=== PATIENT | female | born 1960 | race Caucasian/White ===

== ENCOUNTER → 2017-10-27 12:34 | Outpatient (CLI) | payer OTHER, SELFPAY ==
--- NOTE | 2017-10-27 | DI.RAD.S_ITS ---
PROCEDURE: XR ELBOW RT MIN 3V INDICATIONS: ELBOW PAIN TECHNIQUE: 3 views of the elbow were acquired. COMPARISON: None. FINDINGS: Bones: No fractures or dislocations. No suspicious bony lesions. Soft tissues: No elbow joint effusion. No suspicious soft tissue calcifications. IMPRESSION: No fracture identified. Dictated by: Ankur Johnson M.D. on 10/27/2017 at 14:36 Approved by: Ankur Johnson M.D. on 10/27/2017 at 14:39
== END ==
PROVIDERS: PCP Nurse Practitioner Family; Visit Provider Nurse Practitioner Family
DX: M25.521 Pain in right elbow (principal)
CPT/HCPCS: 73080

== ENCOUNTER → 2019-02-04 08:10 | Outpatient (CLI) | payer OTHER, SELFPAY ==
--- NOTE | 2019-02-04 08:12 | DI.MRI.S_ITS ---
PROCEDURE: MR HEAD/BRAIN WO/W CON INDICATIONS: r/o tumor causing vertigo/headache/coordination issues TECHNIQUE: Noncontrast axial T1 spin echo, axial T2 fast spin echo, sagittal and axial FLAIR, coronal T2 fast spin echo, axial gradient echo, axial diffusion and ADC through the brain. After the administration of contrast, axial and coronal 3D VIBE or T1 spin echo with fat saturation through the brain. COMPARISON: None. FINDINGS: Image quality: Excellent. CSF Spaces: Basal cisterns are patent. No extra-axial fluid collections. Ventricles are normal in size and shape. Brain: No midline shift. No intracranial bleeds or masses. There is a mild degree of patchy high flair signal foci within the bilateral periventricular and some cortical white matter, predominantly involving the frontal lobes, which is nonspecific in distribution. No abnormal intracranial enhancement. The brainstem appears normal. Diffusion-weighted images demonstrate no acute ischemic insults. No chronic ischemic insults. Normal intravascular flow voids are present. Skull and face: Calvarial marrow is normal in signal. Orbits appear normal. Sinuses: There is mild left and minimal right mastoid fluid bilaterally. There is mild mucosal thickening within the bilateral maxillary and ethmoid air cells and within the right sphenoid sinus. IMPRESSION: 1. Mild degree of nonspecific white matter disease. Differential considerations include small vessel cement disease, diabetes mellitus, vasculitides, migraines, and demyelinating disorders, such as multiple sclerosis. 2. No acute process. No recent infarct. 3. No evidence of neoplasm. 4. Mild sinus and mastoid disease. Dictated by: Kelin Lancaster M.D. on 02/04/2019 at 9:14 Approved by: Kelin Lancaster M.D. on 02/04/2019 at 9:17
== END ==
PROVIDERS: PCP Nurse Practitioner Family; Visit Provider Specialist
DX: R42 Dizziness and giddiness (principal); R51 Headache; J32.8 Other chronic sinusitis
CPT/HCPCS: 70553

== ENCOUNTER 2019-02-11 10:21 | Day surgery (SDC) | payer OTHER, SELFPAY ==
[2019-02-08 15:14] VITALS: BMI 26.1
[2019-02-11] VITALS (8 sets, daily range): BP systolic 117–143; BP diastolic 74–89; PULSE 69–112; RESP 10–20; TEMP 36.1–36.7; O2SAT 99–100; BMI 25.7
--- NOTE | 2019-02-11 | PATH_ITS ---
[facility] Accession Number: [id number] . 01 Material submitted: . PART A: artery - RIGHT TEMPORAL ARTERY BBIOPSY PART B: artery - LEFT TEMPORAL ARTERY BIOPSY . 01 Clinical history: . GALEN TEMPORAL ARTERY BX . 02 Diagnosis: A. Right Temporal Artery Biopsy: Negative for histologic features of temporal arteritis. The internal elastic lamina appears to be intact; the control tissue stained appropriately. . B. Left Temporal Artery, Biopsy: Negative for histologic features of temporal arteritis. The internal elastic lamina appears to be intact; the control tissue stained appropriately. MRV 02/12/2019 1321 Local . 02 Electronically signed: . Priscilla Knutson MD, Pathologist NPI- [id number] . 01 Gross description: . Received two formalin-filled containers, both labeled with the patient's name: . A. In a container labeled right temporal artery #1, the specimen consists of a 0.1 cm in diameter by 0.2 cm in length, cylindrical shaped portion of tissue which is inked blue and entirely submitted in cassette A to be possibly further sectioned at the time of embedding. B. In a container labeled #2. Left temporal artery biopsy, the specimen consists of a 0.1 cm in diameter by 0.4 cm in length, cylindrical shaped portion of tissue which is inked blue and entirely submitted in cassette B to be possibly further sectioned at the time of embedding. ([id number]) /GENE 02/12/2019 0230 Local . 02 Pathologist provided ICD-10: I77.6 . 02 CPT . 291477, 334201, 652722, [id number] Performed at: [address] [id number] MD Rinku Campbell MD Phone: [phone] Performed at: 02 [facility] [address] [place] [address] [place], [place] [id number] MD Virgen Barnett MD Phone: [phone]
[2019-02-11] MEDS: LACTATED RINGERS 1,000 ML 42 ML IV (10:45)
--- NOTE | 2019-02-11 11:22 | PM.HP.1 ---
History of Present Illness History of Present Illness Date Patient Seen: 02/11/19 Time Patient Seen: 11:22 Chief complaint: [id number] GALEN TEMPORAL ARTERY BX Narrative: The patient is a woman here for bilateral temporal artery biopsies. She has been having headaches chronically and there was Concern about temporal arteritis. She actually underwent an MRI because some of her symptoms were suggestive of possible tumor. This was not the case but a question was raised about a possible vasculitis as a cause of her symptoms. The she is here for biopsy. Patient History Medical History Anemia (Acute) HTN (hypertension) (Acute) Pyelonephritis (Acute ~09/2012) Sepsis (Acute ~09/2012) Skin cancer (Inactive) Surgical History H/O sinus surgery (Inactive) Hx of appendectomy (Inactive) Family & Social History Social History: household members spouse Meds Home Medications and Allergies Home Medications Medication Instructions Recorded Confirmed Type ACETAMINOPHEN 650 mg PO Q4H #0 tab 10/10/12 02/08/19 History NORETHINDRONE-ETHINYL ESTRAD 1 applic DAILY #0 10/10/12 02/11/19 History (Ortho-Novum 7-7-7-28 Tablet) hydrochlorothiazide 12.5 mg PO QDAY #0 cap 10/10/12 02/11/19 History ibuprofen 800 mg PO Q8H #0 tab 10/10/12 02/08/19 History meclizine 25 mg PO DAILY 02/11/19 02/11/19 History minocycline 100 mg PO DAILY 02/11/19 02/11/19 History ranitidine HCl 150 mg PO DAILY 02/11/19 02/11/19 History Allergies Allergy/AdvReac Type Severity Reaction Status Date / Time No Known Drug Allergies Allergy Verified 02/11/19 10:35 Review of Systems Review of Systems ROS Unobtainable: All systems reviewed & are unremarkable except as noted in HPI and below Neurologic Comments: Chronic bilateral temporal headaches and chronic intermittent dizziness and vertigo. Exam Vital Signs (past 8 hours): - 02/11/19 10:40 Temperature 98.1 F Pulse Rate 93 H Respiratory Rate 16 Blood Pressure 137/89 Pulse Oximetry 99 Oxygen Delivery Method Room Air Narrative Exam Narrative: Cooperative no apparent distress. Not palpable temporal arteries only by signal. Lungs are clear no rales or rhonchi heart regular rate and rhythm no murmur gallop abdomen is soft nontender without mass no nodes neck supraclavicular areas Assessment & Plan Assessment & Plan narrative: Patient with possible vasculitis as a cause of headaches. Here for temporal artery biopsy. I've discussed the procedure with her including risks of bleeding infection scar. She appears to understand wishes to proceed. She was marked with a hand-held Doppler preop
--- NOTE | 2019-02-11 11:34 | PM.PREOP ---
Pre-operative Note Interval Note History & Physical reviewed/Exam performed by Physician: Yes Changes to H&P: No
--- NOTE | 2019-02-11 11:58 | SUR.OPER ---
Supine on padded OR bed, head on pillow, arms padded and tucked at side, legs uncrossed, safety belt at thigh, tape over blanket over lower legs .
[2019-02-11] MEDS: LIDOCAINE 1% 30 ML INJ (12:05)
--- NOTE | 2019-02-11 12:47 | PM.OP.1 ---
Operative Date/Time/Diagnoses Date of procedure: 02/11/19 Time of procedure: 12:47 Pre-op diagnosis: Chronic temporal headaches with an abnormal MRI suggesting possible vasculitis rule out temporal arteritis Post-op diagnosis: same Procedure & Clinicians Procedure: Bilateral temporal artery biopsies Same procedure as scheduled: Yes Indications: Abnormal MRI with temporal headaches Surgeon: Bran Verde Click Yes if Unassisted: Yes Anesthesia Type: General Operative Notes Findings: Two normal appearing arteries. That on the left was diminutive Closure Type: primary Specimen(s): other (Segments left and right temporal artery) Prosthetic devices, grafts, tissues, transplants, or devices: None Estimated Blood Loss (mL): 5 Blood products transfused: none Procedure in detail: The patient is placed supine on the operating room table and underwent general LMA anesthesia. She was prepped and draped in the usual fashion. She had been marked preoperatively but hand-held Doppler that was sterile was applied to plan on definitive incision. We began on the right. After locating the path of the artery and incision was made overlying it and carried down to the level the artery which was just above the muscle fascia. A segment of the artery was from surrounding structures. It was tied proximally and distally with a 4 0 Vicryl tie. The segment between the 2 ties was removed and submitted. Pre removal length was about 1 cm. The subcu/skin was closed with interrupted 4 0 Vicryl and Mastisol and Steri-Strips. Attention was turned to the opposite side. I great difficulty finding this artery preoperatively and in fact the artery that I located is much lower than I would have anticipated and decided to abandon that plan as I was concerned that I could be getting into the area of the nerve to the eyelid. Therefore I sought out a 2nd artery which was higher in in a more 10 typical location that was very difficult to hear. Incisions made overlying it and carried down through muscle tissue to identify this short this artery it was quite diminutive. Ice handled it in an identical fashion to the opposite side and closure was in an identical fashion. The pain tolerated the procedure well was awakened extubated taken recovery area in good condition. Complications: none Post-operative Condition: stable Disposition: PACU Plan for aftercare: Follow-up in the office
[2019-02-11] MEDS: ONDANSETRON 4 MG/2 ML INJ IV (12:55)
[2019-02-11] MEDS: METOCLOPRAMIDE 10 MG/2 ML INJ IV (13:04)
--- NOTE | 2019-02-11 13:56 | SUR.PHASEII ---
1345 Stable and pleasant, denies pain, nausea resolved, pt anxious to go home. Smiling, denies questions/concerns
== END 2019-02-11 13:53 | disposition home or self-care (01) ==
PROVIDERS: PCP Nurse Practitioner Family; Visit Provider Specialist
PROC: (CPT 37609; principal; 2019-02-11 11:30)
DX: R51 Headache (principal); R93.0 Abnormal findings on diagnostic imaging of skull and head, not elsewhere classified; I10 Essential (primary) hypertension
CPT/HCPCS: 37609; J1100; J2405; J2704; J2765; J3010

== ENCOUNTER → 2020-01-03 07:25 | Outpatient (CLI) | payer OTHER, SELFPAY ==
[2020-01-03 08:31] LABS: Hematocrit 40.3 % (36-46); Hemoglobin 13.3 g/dL (12.0-16.0); Mean Corpuscular HGB Conc 33.1 % (30-36); Mean Corpuscular Hemoglobin 30.4 PG (26-34); Mean Corpuscular Volume 91.9 fL (80-100); Platelet Count 180 X10^3/uL (150-400); Red Blood Cell Count 4.38 X10^6/uL (4.0-5.2); Red Cell Distribution Width 13.5 % (11.6-14.8); White Blood Cell Count 6.5 X10^3/uL (4.5-11.0)
[2020-01-03 08:46] LABS: Alanine Aminotransferase 16 IU/L (<35); Albumin 3.6 g/dL (3.5-5.0); Albumin Globulin Ratio 1.2 (1.0-2.8); Alkaline Phosphatase 63 U/L (38-126); Aspartate Aminotransferase 21 IU/L (14-36); BUN Creatinine Ratio 25.6 (6-22); Bilirubin Total 0.3 mg/dL (0.2-1.3); Blood Urea Nitrogen 20 mg/dL (7-17); Calcium 8.6 mg/dL (8.4-10.2); Carbon Dioxide 28 mmol/L (22-32); Chloride 104 mmol/L (98-107); Cholesterol 147 mg/dL (140-199); Estimated Glomerular Filt Rate > 60.0 mL/min (>60); Glucose 102 mg/dL (70-100); HDL Cholesterol 51 mg/dL (40-60); HEMOLYSIS < 15 (0-50); LDL Cholesterol Calculated 81 mg/dL (<100); Potassium 3.9 mmol/L (3.4-5.1); Sodium 135 mmol/L (137-145); Total Protein 6.6 g/dL (6.3-8.2); Triglycerides 77 mg/dL (35-150)
[2020-01-03 09:43] LABS: TSH w/ Reflex to FT4 5.85 uIU/mL (0.47-4.68)
[2020-01-03 10:11] LABS: Free T4, Direct Thyroxine 0.87 ng/dL (0.78-2.19)
== END ==
PROVIDERS: PCP Registered Nurse Diabetes Educator; Referring Provider Registered Nurse Diabetes Educator; Visit Provider Registered Nurse Diabetes Educator
DX: Z00.00 Encounter for general adult medical examination without abnormal findings (principal); I10 Essential (primary) hypertension
CPT/HCPCS: 36415; 80053; 80061; 84439; 84443; 85027

== ENCOUNTER → 2020-02-01 17:22 | Outpatient (CLI) | payer OTHER, SELFPAY ==
--- NOTE | 2020-02-01 17:23 | DI.MG.S_ITS ---
BILATERAL DIGITAL SCREENING MAMMOGRAM 3D/2D WITH CAD: 02/01/2020 CLINICAL: Routine screening. Comparison is made to exams dated: 11/30/2009 mammogram, 03/25/2011 mammogram, and 03/07/2014 mammogram - outside location. There are scattered fibroglandular elements in both breasts. Current study was also evaluated with a Computer Aided Detection (CAD) system. No significant masses, calcifications, or other findings are seen in either breast. There has been no significant interval change. IMPRESSION: NEGATIVE There is no mammographic evidence of malignancy. A 1 year screening mammogram is recommended. This exam was interpreted at Station ID: [id number]. NOTE: For mammograms, a report in lay terms will be sent to the patient. Approximately 15% of breast malignancies will not be visualized mammographically. In the management of a palpable breast mass, a negative mammogram must not discourage biopsy of a clinically suspicious lesion. Electronically Signed By: Ita yoder/greg:02/02/2020 09:14:10 letter sent: Normal Exam ACR BI-RADS Category 1: Negative 3341F
== END ==
PROVIDERS: PCP Registered Nurse Diabetes Educator; Referring Provider Registered Nurse Diabetes Educator; Visit Provider Registered Nurse Diabetes Educator
DX: Z12.31 Encounter for screening mammogram for malignant neoplasm of breast (principal)
CPT/HCPCS: 77063; 77067

== ENCOUNTER → 2020-03-23 10:35 | Outpatient (CLI) | payer OTHER, SELFPAY ==
[2020-03-23 11:49] LABS: BUN Creatinine Ratio 24.4 (6-22); Blood Urea Nitrogen 19 mg/dL (7-17); Calcium 9.2 mg/dL (8.4-10.2); Carbon Dioxide 29 mmol/L (22-32); Chloride 101 mmol/L (98-107); Estimated Glomerular Filt Rate > 60.0 mL/min (>60); Glucose 95 mg/dL (70-100); HEMOLYSIS < 15 (0-50); Sodium 136 mmol/L (137-145)
[2020-03-23 12:21] LABS: TSH w/ Reflex to FT4 1.48 uIU/mL (0.47-4.68)
== END ==
PROVIDERS: PCP Registered Nurse Diabetes Educator; Referring Provider Registered Nurse Diabetes Educator; Visit Provider Registered Nurse Diabetes Educator
DX: E03.9 Hypothyroidism, unspecified (principal); E87.1 Hypo-osmolality and hyponatremia; I10 Essential (primary) hypertension
CPT/HCPCS: 36415; 80048; 84443

== ENCOUNTER → 2020-06-01 15:26 | Outpatient (CLI) | payer OTHER, SELFPAY ==
[2020-06-01] MEDS: COVID-19 VACC #1, MRNA(MOD) 100 MCG/0.5 ML VIAL IM (15:34)
== END ==
PROVIDERS: PCP Registered Nurse Diabetes Educator; Visit Provider Internal Medicine
DX: Z23 Encounter for immunization (principal)
CPT/HCPCS: 0011A; 91301

== ENCOUNTER → 2020-06-29 14:46 | Outpatient (CLI) | payer OTHER, SELFPAY ==
[2020-06-29] MEDS: COVID-19 VACC #2, MRNA(MOD) 100 MCG/0.5 ML VIAL IM (14:51)
== END ==
PROVIDERS: Visit Provider Internal Medicine
DX: Z23 Encounter for immunization (principal)
CPT/HCPCS: 0012A; 91301

== ENCOUNTER → 2020-12-11 08:09 | Outpatient (CLI) | payer OTHER, SELFPAY ==
[2020-12-11 09:02] LABS: Hematocrit 37.6 % (36-46); Hemoglobin 12.5 g/dL (12.0-16.0); Mean Corpuscular HGB Conc 33.2 % (30-36); Mean Corpuscular Hemoglobin 30.1 PG (26-34); Mean Corpuscular Volume 90.6 fL (80-100); Platelet Count 187 X10^3/uL (150-400); Red Blood Cell Count 4.15 X10^6/uL (4.0-5.2); Red Cell Distribution Width 13.2 % (11.6-14.8); White Blood Cell Count 9.7 X10^3/uL (4.5-11.0)
[2020-12-11 09:16] LABS: Alanine Aminotransferase 16 IU/L (<35); Albumin Globulin Ratio 1.4 (1.0-2.8); Alkaline Phosphatase 115 U/L (38-126); Aspartate Aminotransferase 24 IU/L (14-36); BUN Creatinine Ratio 18.6 (6-22); Bilirubin Total 0.4 mg/dL (0.2-1.3); Blood Urea Nitrogen 13 mg/dL (7-17); Calcium 9.3 mg/dL (8.4-10.2); Carbon Dioxide 30 mmol/L (22-32); Chloride 102 mmol/L (98-107); Cholesterol 161 mg/dL (140-199); Estimated Glomerular Filt Rate > 60.0 mL/min (>60); Globulin 2.9 g/dL (1.7-4.1); Glucose 99 mg/dL (80-110); HDL Cholesterol 54 mg/dL (40-60); HEMOLYSIS < 15 (0-50); LDL Cholesterol Calculated 91 mg/dL (<100); Sodium 138 mmol/L (137-145); Total Protein 6.9 g/dL (6.3-8.2); Triglycerides 79 mg/dL (35-150)
[2020-12-11 09:47] LABS: TSH w/ Reflex to FT4 2.78 uIU/mL (0.47-4.68)
== END ==
PROVIDERS: PCP Registered Nurse Diabetes Educator; Referring Provider Registered Nurse Diabetes Educator; Visit Provider Registered Nurse Diabetes Educator
DX: E03.9 Hypothyroidism, unspecified (principal); E87.1 Hypo-osmolality and hyponatremia; I10 Essential (primary) hypertension
CPT/HCPCS: 36415; 80053; 80061; 84443; 85027

== ENCOUNTER → 2020-12-14 16:09 | Outpatient (CLI) | payer OTHER, SELFPAY ==
[2020-12-14 17:53] LABS: COVID19 -Nasal RAPID Negative (Negative)
== END ==
PROVIDERS: PCP Registered Nurse Diabetes Educator; Visit Provider Registered Nurse Diabetes Educator
DX: Z20.822 Contact with and (suspected) exposure to COVID-19 (principal)
CPT/HCPCS: 87635

== ENCOUNTER → 2020-12-25 13:39 | Outpatient (CLI) | payer OTHER, SELFPAY ==
[2020-12-25 15:33] LABS: Influenza A - CEPHEID Flu A NEGATIVE (NEGATIVE); Influenza B - CEPHEID Flu B NEGATIVE (NEGATIVE)
== END ==
PROVIDERS: PCP Registered Nurse Diabetes Educator; Referring Provider Registered Nurse Diabetes Educator; Visit Provider Registered Nurse Diabetes Educator
DX: J02.9 Acute pharyngitis, unspecified (principal); R05.9 Cough, unspecified; R68.83 Chills (without fever); R51.9 Headache, unspecified; R09.89 Other specified symptoms and signs involving the circulatory and respiratory systems
CPT/HCPCS: 87070; 87081; 87502

== ENCOUNTER → 2021-12-11 07:07 | Outpatient (CLI) | payer OTHER, SELFPAY ==
[2021-12-11 08:38] LABS: Hematocrit 38.3 % (36-46); Hemoglobin 12.8 g/dL (12.0-16.0); Mean Corpuscular HGB Conc 33.4 % (30-36); Mean Corpuscular Hemoglobin 30.5 PG (26-34); Mean Corpuscular Volume 91.1 fL (80-100); Platelet Count 163 X10^3/uL (150-400); Red Cell Distribution Width 13.7 % (11.6-14.8); White Blood Cell Count 5.4 X10^3/uL (4.5-11.0)
[2021-12-11 09:21] LABS: Alanine Aminotransferase 22 IU/L (<35); Albumin 3.9 g/dL (3.5-5.0); Albumin Globulin Ratio 1.4 (1.0-2.8); Alkaline Phosphatase 95 U/L (38-126); Aspartate Aminotransferase 28 IU/L (14-36); BUN Creatinine Ratio 20.5 (6-22); Bilirubin Total 0.4 mg/dL (0.2-1.3); Blood Urea Nitrogen 15 mg/dL (7-17); Carbon Dioxide 26 mmol/L (22-32); Chloride 103 mmol/L (98-107); Cholesterol 181 mg/dL (140-199); Estimated Glomerular Filt Rate > 60 mL/min (>60); Globulin 2.8 g/dL (1.7-4.1); Glucose 96 mg/dL (80-110); HDL Cholesterol 59 mg/dL (40-60); HEMOLYSIS < 15 (0-50); LDL Cholesterol Calculated 107 mg/dL (<100); Potassium 4.3 mmol/L (3.4-5.1); Sodium 137 mmol/L (137-145); Total Protein 6.7 g/dL (6.3-8.2); Triglycerides 77 mg/dL (35-150)
[2021-12-11 09:42] LABS: TSH w/ Reflex to FT4 1.76 uIU/mL (0.47-4.68)
== END ==
PROVIDERS: PCP Registered Nurse Diabetes Educator; Referring Provider Registered Nurse Diabetes Educator; Visit Provider Registered Nurse Diabetes Educator
DX: E03.9 Hypothyroidism, unspecified (principal); I10 Essential (primary) hypertension
CPT/HCPCS: 36415; 80053; 80061; 84443; 85027

== ENCOUNTER → 2022-03-13 08:37 | Outpatient (CLI) | payer OTHER, SELFPAY ==
--- NOTE | 2022-03-13 08:38 | DI.MG.S_ITS ---
BILATERAL DIGITAL DIAGNOSTIC MAMMOGRAM 3D/2D: 03/13/2022 CLINICAL: Left breast lump. Comparison is made to exams dated: 02/01/2020 mammogram - [facility], 03/07/2014 mammogram, and 03/25/2011 mammogram - outside location. Both breasts are heterogeneously dense, which may obscure small masses (category c / 51-75% glandular tissue). No significant masses, calcifications, or other findings are seen in either breast. IMPRESSION: INCOMPLETE: NEEDS ADDITIONAL IMAGING EVALUATION No mammographic evidence of malignancy. A targeted left breast ultrasound is recommended and will immediately follow. Based on the Tyrer Cuzick model (a risk assessment model) the patient's lifetime risk is 11.8% and her 10 year risk is 5.0%. According to the ACR, ACS, and NCCN guidelines, an annual breast MRI exam along with mammogram is recommended if the patient's lifetime risk is 20% or greater. This exam was interpreted at Station ID: [id number]. NOTE: For mammograms, a report in lay terms will be sent to the patient. Approximately 15% of breast malignancies will not be visualized mammographically. In the management of a palpable breast mass, a negative mammogram must not discourage biopsy of a clinically suspicious lesion. Electronically Signed By: Dre Case M.D. slc/:03/13/2022 09:17:46 ACR BI-RADS Category 0: Incomplete [id number]
--- NOTE | 2022-03-13 08:38 | DI.US.S_ITS ---
LIMITED ULTRASOUND OF LEFT BREAST: 03/13/2022 CLINICAL: Palpable left breast lump. Comparison is made to exams dated: 03/13/2022 mammogram, 02/01/2020 mammogram - [facility], and 03/07/2014 mammogram - outside location. Color flow and real-time ultrasound of the left breast 6-7 o'clock region were performed. Isbell scale images of the real-time examination were reviewed. No significant abnormalities were seen sonographically in the left breast in the region of the palpable abnormality. IMPRESSION: NEGATIVE There is no sonographic evidence of malignancy. Exam findings were conveyed to the patient. Patient is advised to monitor for significant change. Clinical follow-up as needed. A 1 year screening mammogram is recommended. This exam was interpreted at Station ID: [id number]. Electronically Signed By: Dre Case M.D. slc/:03/13/2022 09:43:11 letter sent: Normal Exam Ultrasound BI-RADS: 1 Negative
== END ==
PROVIDERS: PCP Registered Nurse Diabetes Educator; Referring Provider Registered Nurse Diabetes Educator; Visit Provider Registered Nurse Diabetes Educator
DX: N63.20 Unspecified lump in the left breast, unspecified quadrant (principal); R92.2 Inconclusive mammogram
CPT/HCPCS: 76642; 77066; G0279

== ENCOUNTER 2022-03-21 08:33 | Day surgery (SDC) | payer OTHER, SELFPAY ==
[2022-03-21 08:57] VITALS: BP 130/82; PULSE 82; RESP 26; TEMP 36.1; O2SAT 98; BMI 25.7
[2022-03-21] MEDS: LACTATED RINGERS 1,000 ML 150 ML IV (09:02)
--- NOTE | 2022-03-21 09:59 | PM.HP.1 ---
History of Present Illness History of Present Illness Date Patient Seen: 03/21/22 Time Patient Seen: 10:00 Chief complaint: Screening Colonoscopy Narrative: Janice is a 61-year-old woman here for colonoscopy. She has had 2 in the past and she thinks her last 1 was over 10 years ago. She is not sure if she had any polyps. She has no known family history of colon cancer. Patient History Medical History Anemia Carpal tunnel syndrome Chronic GERD Eczema Headache HTN (hypertension) Melanoma Pyelonephritis (~09/2012) Rosacea Sepsis (~09/2012) Skin cancer Subclinical hypothyroidism Vertigo Surgical History H/O sinus surgery Hx of appendectomy Family & Social History Family History Father Skin cancer Hypertension Mother Skin cancer Hypertension Stroke Social History: household members spouse Tobacco & Substance use: Smoking Status Former smoker alcohol intake frequency a few times a week Substance Use Type does not use Meds Home Medications and Allergies Home Medications Medication Instructions Recorded Confirmed Type hydrochlorothiazide 12.5 mg capsule 12.5 mg PO QDAY #90 caps 10/10/12 03/21/22 Rx ibuprofen 800 mg tablet 800 mg PO Q8H PRN pain #90 tabs 10/10/12 03/21/22 Rx famotidine 20 mg tablet (Pepcid) 20 mg PO BID PRN heartburn #180 12/19/21 03/21/22 Rx tabs levothyroxine 50 mcg tablet 50 mcg PO DAILY #90 tabs 12/19/21 03/21/22 Rx meclizine 25 mg tablet 25 mg PO TID PRN dizziness #270 03/04/22 03/21/22 Rx tabs Allergies Allergy/AdvReac Type Severity Reaction Status Date / Time No Known Drug Allergies Allergy Verified 03/21/22 08:51 Exam Vital Signs (past 8 hours): - 03/21/22 08:57 Temperature 97 F L Pulse Rate 82 Respiratory Rate 26 H Blood Pressure 130/82 Pulse Oximetry 98 Oxygen Delivery Method Room Air Oxygen Delivery Method Room Air Const General: No acute distress Assessment & Plan Assessment and plan (1) Colon cancer screening: Status: Acute Plan Janice is a 61-year-old woman here for colonoscopy for colon cancer screening. Reviewed the risks and benefits and she would like to proceed. Time Spent With Patient Critical Care time: I spent a total of [] minutes of critical care time on this patient's care today; this time is exclusive of procedural time.
[2022-03-21 10:31] VITALS: BP 98/59; PULSE 57; RESP 16; TEMP 36.1; O2SAT 98
[2022-03-21 10:40] VITALS: BP 98/61; PULSE 52; RESP 12; O2SAT 98
--- NOTE | 2022-03-21 10:42 | PM.OP.COLON ---
Operative Date/Time/Diagnoses Date of procedure: 03/21/22 Time of procedure: 10:42 Pre-op diagnosis: Colon cancer screening Post-op diagnosis: same Procedure & Clinicians Study performed: Colonoscopy Same procedure as scheduled: Yes Surgeon: Titus Reed Procedure Notes Procedure in detail: Surgeon: Titus Reed MD Anesthesia: Dr. Vera Procedure: The patient was brought to the endoscopy suite, placed in left lateral decubitus position. The patient was connected to monitoring devices. A time-out was performed. Sedation was administered. Once the patient was adequately sedated, a digital rectal exam was performed and was normal. The scope was then inserted and advanced to the cecum where the appendiceal orifice was identified and photographed. The scope was then slowly withdrawn over greater than 6 minutes. The mucosa was thoroughly inspected. No polyps were found. She had a normal colon. The scope was retroflexed in the rectum. No abnormalities were seen. The scope was straightened and removed. The patient was awakened and brought to recovery. Scope withdrawal time: 8 minutes Sedation time: 17 minutes EBL: 0 Findings: Normal colon Post-procedure Recommendations: Colonoscopy in 10 years Disposition: PACU
[2022-03-21 10:45] VITALS: BP 123/75; PULSE 87; RESP 26; TEMP 36.4; O2SAT 99
[2022-03-21 10:47] VITALS: BP 123/75; PULSE 90; RESP 16; O2SAT 97
--- NOTE | 2022-03-21 11:54 | SUR.PHASEII ---
1055 VS: BP 105/71, HR 72, temp 96.7, O2 99% RA.
== END 2022-03-21 11:13 | disposition home or self-care (01) ==
PROVIDERS: PCP Registered Nurse Diabetes Educator; Referring Provider Surgery; Visit Provider Surgery
PROC: 0DJD8ZZ Inspection of Lower Intestinal Tract, Via Natural or Artificial Opening Endoscopic (ICD-10-PCS; CPT 45378; principal; 2022-03-21 09:45)
DX: Z12.11 Encounter for screening for malignant neoplasm of colon (principal)
CPT/HCPCS: 45378; J2704

== ENCOUNTER → 2023-02-22 08:17 | Outpatient (CLI) | payer OTHER, SELFPAY ==
[2023-02-22 09:25] LABS: Hemoglobin 13.3 g/dL (12.0-16.0); Mean Corpuscular HGB Conc 33.3 % (30-36); Mean Corpuscular Hemoglobin 30.5 PG (26-34); Mean Corpuscular Volume 91.5 fL (80-100); Platelet Count 199 X10^3/uL (150-400); Red Blood Cell Count 4.37 X10^6/uL (4.0-5.2); Red Cell Distribution Width 13.6 % (11.6-14.8); White Blood Cell Count 5.8 X10^3/uL (4.5-11.0)
[2023-02-22 09:37] LABS: Alanine Aminotransferase 21 IU/L (<35); Albumin 4.3 g/dL (3.5-5.0); Albumin Globulin Ratio 1.3 (1.0-2.8); Alkaline Phosphatase 81 U/L (38-126); Aspartate Aminotransferase 31 IU/L (14-36); Bilirubin Total 0.8 mg/dL (0.2-1.3); Blood Urea Nitrogen 12 mg/dL (7-17); Calcium 9.8 mg/dL (8.4-10.2); Carbon Dioxide 27 mmol/L (22-32); Chloride 100 mmol/L (98-107); Cholesterol 179 mg/dL (140-199); Estimated Glomerular Filt Rate > 60 mL/min (>60); Globulin 3.4 g/dL (1.7-4.1); Glucose 98 mg/dL (80-110); HDL Cholesterol 66 mg/dL (40-60); HEMOLYSIS < 15 (0-50); LDL Cholesterol Calculated 100 mg/dL (<100); Potassium 4.2 mmol/L (3.4-5.1); Sodium 135 mmol/L (137-145); Total Protein 7.7 g/dL (6.3-8.2); Triglycerides 67 mg/dL (35-150)
== END ==
LOC: LAB 08:18
PROVIDERS: PCP Registered Nurse Diabetes Educator; Referring Provider Registered Nurse Diabetes Educator; Visit Provider Registered Nurse Diabetes Educator
DX: E87.1 Hypo-osmolality and hyponatremia (principal); E03.9 Hypothyroidism, unspecified; I10 Essential (primary) hypertension
CPT/HCPCS: 36415; 80053; 80061; 84443; 85027

== ENCOUNTER → 2023-04-02 12:29 | Outpatient (CLI) | payer OTHER, SELFPAY ==
--- NOTE | 2023-04-02 12:31 | DI.MRI.S_ITS ---
PROCEDURE: MR HEAD/BRAIN WO/W CON INDICATIONS: eval for demyelinating lesions/other TECHNIQUE: Noncontrast sagittal and axial FLAIR, axial and coronal T2 fast spin echo, axial VIBE, axial gradient echo, axial diffusion and ADC through the brain. After the administration of contrast, axial and coronal and sagittal VIBE with fat saturation through the brain. COMPARISON: [facility], MR, MR CERVICAL SPINE WO/W CON, 04/02/2023, 13:00. [facility], MR, MR THORACIC SPINE WO/W CON, 04/02/2023, 13:00. [facility], MR, MR HEAD/BRAIN WO/W CON, 02/04/2019, 8:32. FINDINGS: Image quality: Excellent. CSF spaces: Ventricles are normal in size and shape. Basal cisterns are patent. No extra-axial fluid collections. Brain: Mild scattered foci of T2 weighted hyperintensity can be seen within the periventricular deep white matter. No definite involvement of the corpus callosum can be seen. No brainstem involvement is seen. These lesions do not enhance. Mild age-appropriate brain parenchymal volume loss can be seen. No intracranial bleeds or mass effects. Isbell-white matter interface appears intact. No abnormal intracranial enhancement. Diffusion weighted images show no acute ischemic insults. Brainstem appears normal. Normal intravascular flow voids are present. Skull and face: Calvarial marrow signal is normal. Orbits appear normal. Sinuses: Sinuses and mastoids are clear. IMPRESSION: Scattered foci of T2 weighted hyperintensity can be seen within the white matter, without enhancement. Given the appearance of the lesions and the age of the patient, these are most consistent with chronic small vessel ischemic change. A demyelinating process (including multiple sclerosis) is possible, yet considered to be less likely. No masses or abnormal enhancement can be seen. Dictated by: Kyle Becerril M.D. on 04/02/2023 at 14:49 Approved by: Kyle Becerril M.D. on 04/02/2023 at 14:51
--- NOTE | 2023-04-02 12:31 | DI.MRI.S_ITS ---
PROCEDURE: MR THORACIC SPINE WO/W CON INDICATIONS: eval for demyelinating lesions/other TECHNIQUE: Noncontrast sagittal T1 spin echo and T2 fast spin echo, sagittal STIR, axial T1 and T2 fast spin echo through the thoracic spine. After the administration of contrast, axial and sagittal T1 spin echo with fat saturation through the thoracic spine. COMPARISON: [facility], MR, MR CERVICAL SPINE WO/W CON, 04/02/2023, 13:00. [facility], MR, MR HEAD/BRAIN WO/W CON, 04/02/2023, 13:00. Correlation is also made with lumbar MRI, 03/09/2004. FINDINGS: Image quality: This examination is limited by involuntary motion artifact. Alignment and curvature: Accentuated thoracic kyphosis is seen. Marrow: Marrow is of normal overall signal. No acute vertebral body compression fractures. Spinal cord: In this patient with this given history, scrutiny is given to none can be seen. The thoracic cord demonstrates normal signal and bulk. No abnormal enhancement can be seen. Paraspinous soft tissues: No paravertebral masses or abnormal enhancement. Miscellaneous: Throughout the thoracic spine, no significant neural foraminal narrowing or central canal narrowing can be seen. At the L1-L2 level, there is moderate loss of disc height. Moderate disc bulge is seen, with a central/left disc extrusion seen, as on series 7, image 9. Moderate central canal narrowing is seen at this level. Mild bilateral neural foraminal narrowing is seen. IMPRESSION: No suspicious T2 hyperintense lesions can be seen within the thoracic cord to suggest involvement with multiple sclerosis. No abnormal enhancement is seen. Focal L1-L2 degenerative change seen, with a disc extrusion. This is new compared to 2004. Dictated by: Kyle Becerril M.D. on 04/02/2023 at 14:52 Approved by: Kyle Becerril M.D. on 04/02/2023 at 14:54
--- NOTE | 2023-04-02 12:32 | DI.MG.S_ITS ---
BILATERAL DIGITAL SCREENING MAMMOGRAM 3D/2D WITH CAD: 04/02/2023 CLINICAL: Routine screening. Family history of breast cancer. Comparison is made to exams dated: 03/13/2022 ultrasound, 03/13/2022 mammogram, 02/01/2020 mammogram - [facility], 03/07/2014 mammogram, and 03/25/2011 mammogram - outside location. Both breasts are heterogeneously dense, which may obscure small masses (category c / 51-75% glandular tissue). Current study was also evaluated with a Computer Aided Detection (CAD) system. No significant masses, calcifications, or other findings are seen in either breast. There has been no significant interval change. IMPRESSION: NEGATIVE There is no mammographic evidence of malignancy. A 1 year screening mammogram is recommended. Based on the Tyrer Cuzick model (a risk assessment model) the patient's lifetime risk is 11.5% and her 10 year risk is 5.0%. According to the ACR, ACS, and NCCN guidelines, an annual breast MRI exam along with mammogram is recommended if the patient's lifetime risk is 20% or greater. This exam was interpreted at Station ID: [id number]. NOTE: For mammograms, a report in lay terms will be sent to the patient. Approximately 15% of breast malignancies will not be visualized mammographically. In the management of a palpable breast mass, a negative mammogram must not discourage biopsy of a clinically suspicious lesion. Electronically Signed By: Dali duke/greg:04/02/2023 14:21:40 letter sent: Normal Exam ACR BI-RADS Category 1: Negative 3341F
--- NOTE | 2023-04-02 14:32 | DI.MRI.S_ITS ---
PROCEDURE: MR CERVICAL SPINE WO/W CON INDICATIONS: eval for demyelinating lesions/other TECHNIQUE: Noncontrast sagittal T1 spin echo and T2 fast spin echo, sagittal STIR, sagittal PD fast spin echo, foraminal oblique sagittal T2 fast spin echo, axial gradient echo or T2 fast spin echo through the cervical spine. After the administration of contrast, sagittal and axial T1 spin echo with fat saturation through the cervical spine. COMPARISON: [facility], MR, MR THORACIC SPINE WO/W CON, 04/02/2023, 13:00. [facility], MR, MR HEAD/BRAIN WO/W CON, 04/02/2023, 13:00. [facility], RG, MRI C-SPINE W/O CONTRAST, 03/09/2004, 7:25. FINDINGS: Image quality: Excellent. Alignment and curvature: There is minimal retrolisthesis seen at the C4-C5 level. Marrow: Marrow demonstrates normal overall signal. Spinal cord: Visualized spinal cord is normal in size, without white matter lesions. No suspicious intramedullary enhancement. No cerebellar tonsillar herniation. Paraspinous soft tissues: No paravertebral masses or suspicious enhancement. C2-C3: The disc height is well-preserved. Loss of disc signal is seen at this level. A mild degree of generalized disc osteophyte complex is seen. There is mild right-sided and at least moderate left-sided facet hypertrophy. There is at least moderate left-sided and no right-sided neural foraminal narrowing. No central canal narrowing is seen. C3-C4: The disc height is well-preserved. Loss of disc signal is seen at this level. Mild to moderate disc osteophyte complex is seen, which is eccentric to the right. There is mild right-sided and vhyr-[id number] left-sided facet hypertrophy. Moderate bilateral neural foraminal narrowing is seen. No significant central canal narrowing is seen. C4-C5: At least moderate loss of disc height and disc signal can be seen. Moderate disc osteophyte complex is seen, with a central disc osteophyte protrusion. Mild to moderate facet hypertrophy is seen. There is moderate right-sided and moderate to severe left-sided neural foraminal narrowing. At least moderate central canal narrowing is seen, with associated mass effect upon the ventral spinal cord, as on series 6, image 23. C5-C6: Moderate loss of disc height is seen. Loss of disc signal is seen. Moderate generalized disc osteophyte complex is seen. Uncovertebral joint hypertrophy is seen at this level. Mild to moderate facet hypertrophy can be seen. There is moderate to severe left-sided and at least moderate right-sided neural foraminal narrowing. Moderate central canal narrowing is seen. There is associated mass effect upon the ventral spinal cord. C6-C7: Xnej-uc-[id number] loss of disc height and disc signal can be seen. Mild to moderate disc osteophyte complex is seen, which is eccentric to the left. Mild facet joint hypertrophy is seen. There is moderate to severe left-sided and moderate right-sided neural foraminal narrowing. Moderate central canal narrowing is seen. C7-T1: No significant abnormality is seen. IMPRESSION: No abnormal T2 hyperintense lesions can be seen within the cervical cord to suggest involvement with multiple sclerosis. No abnormal enhancement is seen. Multiple levels of significant degenerative change can be seen, which are worse than in 2005. Dictated by: Kyle Becerril M.D. on 04/02/2023 at 14:56 Approved by: Kyle Becerril M.D. on 04/02/2023 at 15:01
== END ==
LOC: MRI 12:29
PROVIDERS: PCP Registered Nurse Diabetes Educator; Referring Provider Registered Nurse Diabetes Educator; Visit Provider Registered Nurse Diabetes Educator
DX: Z12.31 Encounter for screening mammogram for malignant neoplasm of breast (principal); Z80.3 Family history of malignant neoplasm of breast; R92.333 Mammographic heterogeneous density, bilateral breasts; G93.9 Disorder of brain, unspecified; M47.816 Spondylosis without myelopathy or radiculopathy, lumbar region; M51.26 Other intervertebral disc displacement, lumbar region; M47.812 Spondylosis without myelopathy or radiculopathy, cervical region; R20.0 Anesthesia of skin; R29.898 Other symptoms and signs involving the musculoskeletal system
CPT/HCPCS: 70553; 72156; 72157; 77063; 77067; A9579

== ENCOUNTER → 2023-05-01 09:16 | Outpatient (CLI) | payer OTHER, SELFPAY ==
--- NOTE | 2023-05-01 09:18 | DI.RAD.S_ITS ---
PROCEDURE: XR LUMBAR SPINE MIN 4V INDICATIONS: eval LBP with BLE numbness/weakness TECHNIQUE: 5 views of the lumbar spine were acquired, including bilateral oblique views. COMPARISON: None. FINDINGS: Bones: 5 nonrib-bearing vertebrae are present. There is normal bony alignment. Multilevel loss of disc space height. Small vertebral body osteophytes. Facet joint hypertrophy. No vertebral body compression fractures. No suspicious bony lesions. Soft tissues: Overlying bowel gas pattern is normal. No suspicious soft tissue calcifications. Oblique images: No pars defects. IMPRESSION: No compression fracture. Moderate DDD and degenerative change. Dictated by: Dre Case M.D. on 05/01/2023 at 11:15 Approved by: Dre Case M.D. on 05/01/2023 at 11:16
== END ==
LOC: RAD 09:17
PROVIDERS: PCP Registered Nurse Diabetes Educator; Referring Provider Anesthesiology; Visit Provider Anesthesiology
DX: M47.816 Spondylosis without myelopathy or radiculopathy, lumbar region (principal); M51.36 Other intervertebral disc degeneration, lumbar region; M54.50 Low back pain, unspecified
CPT/HCPCS: 72110

== ENCOUNTER 2023-10-21 08:15 | Outpatient (RCR) | payer OTHER, SELFPAY ==
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
--- NOTE | 2023-11-05 15:27 | PT-OP ANOTE ---
PT attempted to call pt due to pt cancelling last appt via text; however, phone system is currently down so unable to reach pt. Pt does not have any further appt scheduled out and her auth is on 11/04. PT and pt discussed discharge at last session, planning to d/c at 11/04 appt. Will attempt to reach back out to pt due to expected discharge from skilled PT
--- NOTE | 2023-11-06 16:45 | PT-OP ANOTE ---
PT called and left message for pt asking pt to call PT at her convenience. PT needs to speak with pt about discharge and no authorization since pt canceled last visit.
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
== END 2023-12-02 10:17 | disposition home or self-care (01) ==
LOC: PHYS 08:15
PROVIDERS: Family Provider Registered Nurse Diabetes Educator; PCP Registered Nurse Diabetes Educator; Referring Provider Anesthesiology; Visit Provider Anesthesiology
DX: M54.16 Radiculopathy, lumbar region (principal); M54.9 Dorsalgia, unspecified; M47.816 Spondylosis without myelopathy or radiculopathy, lumbar region; R53.1 Weakness; R27.8 Other lack of coordination
CPT/HCPCS: 97110; 97140; 97162; 97530

== ENCOUNTER → 2024-04-24 07:59 | Outpatient (CLI) | payer OTHER, SELFPAY ==
[2024-04-24 09:33] LABS: Hematocrit 39.1 % (36-46); Hemoglobin 13.2 g/dL (12.0-16.0); Mean Corpuscular HGB Conc 33.9 % (30-36); Mean Corpuscular Hemoglobin 30.5 PG (26-34); Mean Corpuscular Volume 89.9 fL (80-100); Platelet Count 191 X10^3/uL (150-400); Red Blood Cell Count 4.35 X10^6/uL (4.0-5.2); Red Cell Distribution Width 13.8 % (11.6-14.8); White Blood Cell Count 6.8 X10^3/uL (4.5-11.0)
[2024-04-24 09:48] LABS: Alanine Aminotransferase 21 IU/L (<35); Albumin 4.2 g/dL (3.5-5.0); Albumin Globulin Ratio 1.6 (1.0-2.8); Alkaline Phosphatase 93 U/L (38-126); Aspartate Aminotransferase 28 IU/L (14-36); BUN Creatinine Ratio 16.9 (6-22); Bilirubin Total 0.4 mg/dL (0.2-1.3); Blood Urea Nitrogen 12 mg/dL (7-17); Calcium 9.4 mg/dL (8.4-10.2); Carbon Dioxide 25 mmol/L (22-32); Chloride 99 mmol/L (98-107); Cholesterol 189 mg/dL (140-199); Estimated Glomerular Filt Rate > 60 mL/min (>60); Globulin 2.6 g/dL (1.7-4.1); Glucose 99 mg/dL (80-110); HDL Cholesterol 60 mg/dL (40-60); HEMOLYSIS 15 (0-50); LDL Cholesterol Calculated 116 mg/dL (<100); Potassium 3.7 mmol/L (3.4-5.1); Sodium 133 mmol/L (137-145); Total Protein 6.8 g/dL (6.3-8.2); Triglycerides 67 mg/dL (35-150)
[2024-04-24 10:19] LABS: TSH w/ Reflex to FT4 1.61 uIU/mL (0.47-4.68)
== END ==
PROVIDERS: Family Provider Registered Nurse Diabetes Educator; PCP Registered Nurse Diabetes Educator; Referring Provider Registered Nurse Diabetes Educator; Visit Provider Registered Nurse Diabetes Educator
DX: E03.9 Hypothyroidism, unspecified (principal); I10 Essential (primary) hypertension; E87.1 Hypo-osmolality and hyponatremia
CPT/HCPCS: 36415; 80053; 80061; 84443; 85027

== ENCOUNTER → 2024-04-28 08:17 | Outpatient (CLI) | payer OTHER, SELFPAY ==
--- NOTE | 2024-04-28 08:19 | DI.RAD.S_ITS ---
PROCEDURE: XR HIP W PEL IF DONE GALEN MIN 4V INDICATIONS: eval bilateral hip pain TECHNIQUE: AP pelvis with lateral view(s) of the bilateral hip(s). COMPARISON: None. FINDINGS: Bones: No fractures or dislocations. Pelvic ring appears intact. No suspicious bony lesions. Mild bilateral hip osteoarthritis with osseous hypertrophy. Soft tissues: The visualized bowel gas pattern is normal. No suspicious soft tissue calcifications. IMPRESSION: No acute bony abnormality. Dictated by: Muriel Sierra MD, PhD on 04/28/2024 at 12:20 Approved by: Muriel Sierra MD, PhD on 04/28/2024 at 12:21
--- NOTE | 2024-04-28 08:19 | DI.MG.S_ITS ---
MM screening mammo BI: 04/28/2024. BI-RADS: 1 CLINICAL: 63-year old female for bilateral screening mammogram. Tyrer-Cuzick lifetime risk of 11.4%. No personal or first-degree family history of breast cancer. PRIOR EXAMS 04/02/2023, 03/13/2022, 02/01/2020. MAMMOGRAPHY TECHNIQUE: 2D and 3D (tomosynthesis) digital mammographic views obtained, with additional images as needed for full coverage. Current study was also evaluated with a Computer Aided Detection (CAD) system. DENSITY D. The breasts are extremely dense, which lowers the sensitivity of mammography. MAMMOGRAPHY FINDINGS Bilateral: No suspicious mass, asymmetry, microcalcification, or other abnormality seen. No significant change from comparison. IMPRESSION: * No evidence of malignancy. RECOMMENDATIONS Bilateral * Annual screening mammography. OVERALL ASSESSMENT CATEGORY BI-RADS-1: Negative. The [employer] recommends annual screening mammography beginning at age 40 for women with average risk of breast cancer. ELECTRONICALLY SIGNED: Alisson Yuan M.D. on 04/28/2024 at 04:12:07 PM PT Interpreting Station ID: [id number]
== END ==
LOC: MAMMO 08:18
PROVIDERS: Family Provider Registered Nurse Diabetes Educator; PCP Registered Nurse Diabetes Educator; Referring Provider Registered Nurse Diabetes Educator; Visit Provider Registered Nurse Diabetes Educator
DX: Z12.31 Encounter for screening mammogram for malignant neoplasm of breast (principal); R92.333 Mammographic heterogeneous density, bilateral breasts; M16.0 Bilateral primary osteoarthritis of hip; M25.551 Pain in right hip; M25.552 Pain in left hip
CPT/HCPCS: 73522; 77063; 77067

== ENCOUNTER 2025-01-28 15:01 | Emergency (ER) | payer OTHER, SELFPAY ==
--- OUTSIDE RECORDS SUMMARY | 2025-01-28 15:04 | XMS_ITS ---
Author Name Emilee Guallpa Address Unknown Organization [facility] Care Team Providers Care Water Resource Agent Name Role Phone Unavailable Primary Care Physician Unavailab le History Of Present Illness This is a 64 year old female who is an established patient who has a family history of melanoma, previous history of actinic keratoses, and previous history of dysplastic nevi, and is being seen for a full body skin examination. She is being monitored for unspecified. Medications Medication Generic Name RxNorm Strength Strength Unit Route Dose Dose Form Frequency Date Started Date Ended Status Indication Sig Acne Cleansing Pads salicyli c acid 2 % Topica l pads, medic ated 06/21/19 16 suspend ed Appl y bid- --juan ught in offi ce adapalene adapalen e 747568 0.1 % Topica l cream 10/06/19 19 suspend ed Appl y to face QHS azelaic acid azelaic acid 7018091 15 % Topica l gel Bid 07/01/19 25 active Appl y to face ebonie cea BID Bactroban 779814 2 % Topica l ointm ent suspend ed Appl y BID x2wk s clindamycin phosphate clindamy rio phosphat e 285672 1 % Topica l 1% lotio n bid 06/26/19 24 active Appl y to affe cted area s abov e the ears and on the ches t BID unti l area is reso lved . Finacea azelaic acid 0249177 15 % Topica l gel QD 09/25/19 19 suspend ed Appl y to ebonie cea amou nt once walker y. Finacea azelaic acid 0893970 15 % Topica l gel suspend ed Appl y to face QHS fluorouraci l fluorour acil 615487 5 % Topica l cream 01/04/20 21 active Appl y to affe cted area s on face and scal p bid x two week s. [place] sulfacet amide sodium (acne) 2097317 10 % Topica l suspe nsion 03/11/19 19 suspend ed Appl y to face BID MetroCream metronid azole 862983 0.75 % Topica l cream 07/29/19 15 suspend ed Appl y to affe cted area Qhs metronidazo le metronid azole 339718 0.75 % Topica l cream BID 11/22/19 23 active Appl y thin laye r to whol e face BID. Latisse bimatopr ost 0.03 % [facility] [employer] [facility] hes drops with appli cator 01/27/20 14 suspend ed Appl y as dire cted . Pt purc hase d in offi ce. doxycycline hyclate doxycycl ine hyclate 7755558 100 mg Oral capsu le 02/19/19 19 suspend ed Take one PO twic e walker y doxycycline hyclate doxycycl ine hyclate 4028309 100 mg Oral 100 mg capsu le BID 07/01/19 25 active take 1 cap once BID X 2 week s with food and wate r. hydrochloro thiazide hydrochl orothiaz aaron Oral suspend ed ibuprofen ibuprofe n 100 mg Oral table t,gosia wable suspend ed minocycline minocycl ine 394755 100 mg Oral capsu le BID 09/25/19 19 suspend ed One PO BID. Take with full glas s of wate r. No dair y Ortho-Novum (28) norethin drone-et hin estradio l Oral suspend ed hydrochloro thiazide hydrochl orothiaz aaron suspend ed Ortho-Novum (28) norethin -e.estra diol triphasi c suspend ed Zantac ranitidi ne HCl suspend ed Problems Problem Code Type Status Date of Diagnosis Date of Resolution Actinic keratosis (disorder) (S NOMED) Diagnosis active 12/31/2024 Skin changes due to chronic exposure to non-ionizing radiation (disorder) 606300213(S NOMED) Diagnosis active 12/31/2024 Inflamed seborrheic keratosis (disorder) 358450699(S NOMED) Diagnosis active 12/31/2024 Rosacea (disorder) 489203788(S NOMED) Diagnosis active 12/31/2024 Contusion of left great toe (disorder) 84504718802 407316(SNOM ED) Diagnosis active 12/31/2024 Contusion of right great toe (disorder) 60782904710 646909(SNOM ED) Diagnosis active 12/31/2024 Seborrheic keratosis (disorder) 670196371(S NOMED) Diagnosis active 12/31/2024 Hemangioma of skin and subcutaneous tissue (disorder) 526125477(S NOMED) Diagnosis active 12/31/2024 Melanocytic nevus of trunk (disorder) 822561021(S NOMED) Diagnosis active 12/31/2024 Disorder of pigmentation (disorder) 616299489(S NOMED) Diagnosis active 12/31/2024 History of skin and/or subcutaneous tissue disease (situation) 52266070460 9105(SNOMED ) Diagnosis active 12/31/2024 Family history of malignant neoplasm (situation) 788966468(S NOMED) Diagnosis active 12/31/2024 Contusion of left great toe (disorder) 10816235301 668372(SNOM ED) Diagnosis active 11/11/2024 Contusion of right great toe (disorder) 97596596760 831613(SNOM ED) Diagnosis active 11/11/2024 History of skin and/or subcutaneous tissue disease (situation) 24474641271 9105(SNOMED ) Diagnosis active 11/11/2024 Family history of malignant neoplasm (situation) 001170423(S NOMED) Diagnosis active 11/11/2024 Skin changes due to chronic exposure to non-ionizing radiation (disorder) 211970769(S NOMED) Diagnosis active 11/11/2024 Neoplasm of uncertain behavior of skin (disorder) 71323492(SN OMED) Diagnosis active 06/30/2024 Rosacea (disorder) 423110011(S NOMED) Diagnosis active 06/30/2024 Actinic keratosis (disorder) 016280283(S NOMED) Diagnosis active 06/30/2024 Skin changes due to chronic exposure to non-ionizing radiation (disorder) 241675531(S NOMED) Diagnosis active 06/30/2024 Seborrheic keratosis (disorder) 703927227(S NOMED) Diagnosis active 06/30/2024 Hemangioma of skin and subcutaneous tissue (disorder) 075849728(S NOMED) Diagnosis active 06/30/2024 Melanocytic nevus of trunk (disorder) 633729152(S NOMED) Diagnosis active 06/30/2024 Disorder of pigmentation (disorder) 125555430(S NOMED) Diagnosis active 06/30/2024 History of skin and/or subcutaneous tissue disease (situation) 88441009088 9105(SNOMED ) Diagnosis active 06/30/2024 Family history of malignant neoplasm (situation) 231548866(S NOMED) Diagnosis active 06/30/2024 Rosacea (disorder) 698159347(S NOMED) Diagnosis active 12/31/2023 Actinic keratosis (disorder) (S NOMED) Diagnosis active 12/31/2023 Skin changes due to chronic exposure to non-ionizing radiation (disorder) 130965361(S NOMED) Diagnosis active 12/31/2023 Seborrheic keratosis (disorder) 113481875(S NOMED) Diagnosis active 12/31/2023 Hemangioma of skin and subcutaneous tissue (disorder) 054083594(S NOMED) Diagnosis active 12/31/2023 Melanocytic nevus of trunk (disorder) 339558454(S NOMED) Diagnosis active 12/31/2023 Disorder of pigmentation (disorder) 503307136(S NOMED) Diagnosis active 12/31/2023 History of skin and/or subcutaneous tissue disease (situation) 51181417277 9105(SNOMED ) Diagnosis active 12/31/2023 Family history of malignant neoplasm (situation) 922321903(S NOMED) Diagnosis active 12/31/2023 Furuncle of chest wall (disorder) 67424950(SN OMED) Diagnosis active 06/26/2023 Furuncle (disorder) 284890111(S NOMED) Diagnosis active 06/26/2023 Actinic keratosis (disorder) (S NOMED) Diagnosis active 06/26/2023 Skin changes due to chronic exposure to non-ionizing radiation (disorder) 401744128(S NOMED) Diagnosis active 06/26/2023 Seborrheic keratosis (disorder) 506026785(S NOMED) Diagnosis active 06/26/2023 Hemangioma of skin and subcutaneous tissue (disorder) 104506506(S NOMED) Diagnosis active 06/26/2023 Melanocytic nevus of trunk (disorder) 565548509(S NOMED) Diagnosis active 06/26/2023 Disorder of pigmentation (disorder) 371566552(S NOMED) Diagnosis active 06/26/2023 History of skin and/or subcutaneous tissue disease (situation) 43689555302 9105(SNOMED ) Diagnosis active 06/26/2023 Family history of malignant neoplasm (situation) 560820132(S NOMED) Diagnosis active 06/26/2023 Rosacea (disorder) 874313372(S NOMED) Diagnosis active 06/26/2023 Neoplasm of uncertain behavior of skin (disorder) 92098870(SN OMED) Diagnosis active 11/21/2022 Actinic keratosis (disorder) 380693356(S NOMED) Diagnosis active 11/21/2022 Rosacea (disorder) 095545372(S NOMED) Diagnosis active 11/21/2022 Skin changes due to chronic exposure to non-ionizing radiation (disorder) 841357132(S NOMED) Diagnosis active 11/21/2022 Seborrheic keratosis (disorder) 232876169(S NOMED) Diagnosis active 11/21/2022 Hemangioma of skin and subcutaneous tissue (disorder) 984721223(S NOMED) Diagnosis active 11/21/2022 Melanocytic nevus of trunk (disorder) 912026781(S NOMED) Diagnosis active 11/21/2022 Disorder of pigmentation (disorder) 954830856(S NOMED) Diagnosis active 11/21/2022 History of skin and/or subcutaneous tissue disease (situation) 81338345679 9105(SNOMED ) Diagnosis active 05/29/2022 Family history of malignant neoplasm (situation) 278645155(S NOMED) Diagnosis active 05/29/2022 Skin changes due to chronic exposure to non-ionizing radiation (disorder) (S NOMED) Diagnosis active 05/29/2022 Seborrheic keratosis (disorder) 248236582(S NOMED) Diagnosis active 05/29/2022 Hemangioma of skin and subcutaneous tissue (disorder) 940835205(S NOMED) Diagnosis active 05/29/2022 Melanocytic nevus of trunk (disorder) 187435745(S NOMED) Diagnosis active 05/29/2022 Disorder of pigmentation (disorder) 239015049(S NOMED) Diagnosis active 05/29/2022 Actinic keratosis (disorder) (S NOMED) Diagnosis active 05/29/2022 Inflamed seborrheic keratosis (disorder) 816004123(S NOMED) Diagnosis active 05/29/2022 Asteatosis cutis (disorder) 31609531(SN OMED) Diagnosis active 05/29/2022 Actinic keratosis (disorder) (S NOMED) Diagnosis active 11/28/2021 Skin changes due to chronic exposure to non-ionizing radiation (disorder) (S NOMED) Diagnosis active 11/28/2021 Seborrheic keratosis (disorder) 482485687(S NOMED) Diagnosis active 11/28/2021 Hemangioma of skin and subcutaneous tissue (disorder) 692110583(S NOMED) Diagnosis active 11/28/2021 Melanocytic nevus of trunk (disorder) 372961678(S NOMED) Diagnosis active 11/28/2021 Disorder of pigmentation (disorder) 841740617(S NOMED) Diagnosis active 11/28/2021 History of skin and/or subcutaneous tissue disease (situation) 63464162473 9105(SNOMED ) Diagnosis active 11/28/2021 Family history of malignant neoplasm (situation) 413438068(S NOMED) Diagnosis active 11/28/2021 Actinic keratosis (disorder) (S NOMED) Diagnosis active 06/28/2021 Skin changes due to chronic exposure to non-ionizing radiation (disorder) (S NOMED) Diagnosis active 06/28/2021 Inflamed seborrheic keratosis (disorder) 592402664(S NOMED) Diagnosis active 06/28/2021 Acne (disorder) 33861466(SN OMED) Diagnosis active 06/28/2021 Seborrheic keratosis (disorder) 667209618(S NOMED) Diagnosis active 06/28/2021 Hemangioma of skin and subcutaneous tissue (disorder) 639596986(S NOMED) Diagnosis active 06/28/2021 Melanocytic nevus of trunk (disorder) 748266525(S NOMED) Diagnosis active 06/28/2021 Disorder of pigmentation (disorder) 554158229(S NOMED) Diagnosis active 06/28/2021 History of skin and/or subcutaneous tissue disease (situation) 25560654828 9105(SNOMED ) Diagnosis active 06/28/2021 Family history of malignant neoplasm (situation) 166702524(S NOMED) Diagnosis active 06/28/2021 Family history of malignant neoplasm (situation) 097664935(S NOMED) Diagnosis active 01/03/2021 History of skin and/or subcutaneous tissue disease (situation) 77955052745 9105(SNOMED ) Diagnosis active 01/03/2021 Skin changes due to chronic exposure to non-ionizing radiation (disorder) 197124512(S NOMED) Diagnosis active 01/03/2021 Seborrheic keratosis (disorder) 296271473(S NOMED) Diagnosis active 01/03/2021 Hemangioma of skin and subcutaneous tissue (disorder) 526954220(S NOMED) Diagnosis active 01/03/2021 Melanocytic nevus of trunk (disorder) 524429513(S NOMED) Diagnosis active 01/03/2021 Disorder of pigmentation (disorder) 665463481(S NOMED) Diagnosis active 01/03/2021 Actinic keratosis (disorder) 214062858(S NOMED) Diagnosis active 01/03/2021 Inflamed seborrheic keratosis (disorder) 909332798(S NOMED) Diagnosis active 01/03/2021 Patient encounter status (finding) 950974417(S NOMED) Diagnosis active 01/03/2021 Family history of malignant neoplasm of other organs or systems Z80.8(ICD-1 0) Diagnosis active 04/08/2019 Personal history of diseases of the skin and subcutaneous tissue Z87.2(ICD-1 0) Diagnosis active 04/08/2019 Other rosacea L71.8(ICD-1 0) Diagnosis active 04/08/2019 Hemangioma of skin and subcutaneous tissue D18.01(ICD- 10) Diagnosis active 04/08/2019 Xerosis cutis L85.3(ICD-1 0) Diagnosis active 04/08/2019 Hypertrophic scar L91.0(ICD-1 0) Diagnosis active 04/08/2019 Other melanin hyperpigmentation L81.4(ICD-1 0) Diagnosis active 04/08/2019 Other rosacea L71.8(ICD-1 0) Diagnosis active 11/04/2018 Family history of malignant neoplasm of other organs or systems Z80.8(ICD-1 0) Diagnosis active 11/04/2018 Family history of malignant neoplasm of other organs or systems Z80.8(ICD-1 0) Diagnosis active 09/24/2018 Personal history of diseases of the skin and subcutaneous tissue Z87.2(ICD-1 0) Diagnosis active 09/24/2018 Other rosacea L71.8(ICD-1 0) Diagnosis active 09/24/2018 Hemangioma of skin and subcutaneous tissue D18.01(ICD- 10) Diagnosis active 09/24/2018 Neoplasm of uncertain behavior of skin D48.5(ICD-1 0) Diagnosis active 09/24/2018 Actinic keratosis L57.0(ICD-1 0) Diagnosis active 03/11/2018 Other rosacea L71.8(ICD-1 0) Diagnosis active 03/11/2018 Other skin changes due to chronic exposure to nonionizing radiation L57.8(ICD-1 0) Diagnosis active 02/19/2018 Hemangioma of skin and subcutaneous tissue D18.01(ICD- 10) Diagnosis active 02/19/2018 Family history of malignant neoplasm of other organs or systems Z80.8(ICD-1 0) Diagnosis active 02/19/2018 Melanocytic nevi of trunk D22.5(ICD-1 0) Diagnosis active 02/19/2018 Personal history of diseases of the skin and subcutaneous tissue Z87.2(ICD-1 0) Diagnosis active 02/19/2018 Actinic keratosis L57.0(ICD-1 0) Diagnosis active 02/19/2018 Other rosacea L71.8(ICD-1 0) Diagnosis active 02/19/2018 Inflamed seborrheic keratosis L82.0(ICD-1 0) Diagnosis active 02/19/2018 Other seborrheic keratosis L82.1(ICD-1 0) Diagnosis active 02/19/2018 Epidermal cyst L72.0(ICD-1 0) Diagnosis active 08/07/2017 Other skin changes due to chronic exposure to nonionizing radiation L57.8(ICD-1 0) Diagnosis active 08/07/2017 Hemangioma of skin and subcutaneous tissue D18.01(ICD- 10) Diagnosis active 08/07/2017 Actinic keratosis L57.0(ICD-1 0) Diagnosis active 08/07/2017 Melanocytic nevi of trunk D22.5(ICD-1 0) Diagnosis active 08/07/2017 Other seborrheic keratosis L82.1(ICD-1 0) Diagnosis active 08/07/2017 Other rosacea L71.8(ICD-1 0) Diagnosis active 08/07/2017 Other melanin hyperpigmentation L81.4(ICD-1 0) Diagnosis active 08/07/2017 Hemangioma of skin and subcutaneous tissue D18.01(ICD- 10) Diagnosis active 01/16/2017 Actinic keratosis L57.0(ICD-1 0) Diagnosis active 01/16/2017 Family history of malignant neoplasm of other organs or systems Z80.8(ICD-1 0) Diagnosis active 01/16/2017 Other skin changes due to chronic exposure to nonionizing radiation L57.8(ICD-1 0) Diagnosis active 01/16/2017 Personal history of diseases of the skin and subcutaneous tissue Z87.2(ICD-1 0) Diagnosis active 01/16/2017 Melanocytic nevi of trunk D22.5(ICD-1 0) Diagnosis active 01/16/2017 Other rosacea L71.8(ICD-1 0) Diagnosis active 01/16/2017 Other seborrheic keratosis L82.1(ICD-1 0) Diagnosis active 01/16/2017 Inflamed seborrheic keratosis L82.0(ICD-1 0) Diagnosis active 01/16/2017 Personal history of diseases of the skin and subcutaneous tissue Z87.2(ICD-1 0) Diagnosis active 06/24/2016 Other rosacea L71.8(ICD-1 0) Diagnosis active 06/24/2016 Dermatitis, unspecified L30.9(ICD-1 0) Diagnosis active 06/24/2016 Family history of malignant neoplasm of other organs or systems Z80.8(ICD-1 0) Diagnosis active 06/24/2016 Hemangioma of skin and subcutaneous tissue D18.01(ICD- 10) Diagnosis active 06/21/2015 Melanocytic nevi of left upper limb, including shoulder D22.62(ICD- 10) Diagnosis active 06/21/2015 Other rosacea L71.8(ICD-1 0) Diagnosis active 06/21/2015 Melanocytic nevi of trunk D22.5(ICD-1 0) Diagnosis active 06/21/2015 Melanocytic nevi of right upper limb, including shoulder D22.61(ICD- 10) Diagnosis active 06/21/2015 Neoplasm of uncertain behavior of skin D48.5(ICD-1 0) Diagnosis active 06/21/2015 Melanocytic nevi of right lower limb, including hip D22.71(ICD- 10) Diagnosis active 06/21/2015 Other skin changes due to chronic exposure to nonionizing radiation L57.8(ICD-1 0) Diagnosis active 06/21/2015 Family history of malignant neoplasm of other organs or systems Z80.8(ICD-1 0) Diagnosis active 06/21/2015 Melanocytic nevi, unspecified D22.9(ICD-1 0) Diagnosis active 06/21/2015 Other seborrheic keratosis L82.1(ICD-1 0) Diagnosis active 06/21/2015 Melanocytic nevi of left lower limb, including hip D22.72(ICD- 10) Diagnosis active 06/21/2015 Personal history of diseases of the skin and subcutaneous tissue Z87.2(ICD-1 0) Diagnosis active 06/21/2015 Perioral dermatitis L71.0(ICD-1 0) Diagnosis active 07/28/2014 Other skin changes due to chronic exposure to nonionizing radiation L57.8(ICD-1 0) Diagnosis active 07/28/2014 Other specified nonscarring hair loss L65.8(ICD-1 0) Diagnosis active 07/28/2014 Other rosacea L71.8(ICD-1 0) Diagnosis active 07/28/2014 Other seborrheic keratosis L82.1(ICD-1 0) Diagnosis active 01/26/2014 Family history of malignant neoplasm of other organs or systems Z80.8(ICD-1 0) Diagnosis active 01/26/2014 Scar conditions and fibrosis of skin L90.5(ICD-1 0) Diagnosis active 01/26/2014 Other skin changes due to chronic exposure to nonionizing radiation L57.8(ICD-1 0) Diagnosis active 01/26/2014 Melanocytic nevi of left lower limb, including hip D22.72(ICD- 10) Diagnosis active 01/26/2014 Other specified nonscarring hair loss L65.8(ICD-1 0) Diagnosis active 01/26/2014 Melanocytic nevi of right lower limb, including hip D22.71(ICD- 10) Diagnosis active 01/26/2014 Personal history of diseases of the skin and subcutaneous tissue Z87.2(ICD-1 0) Diagnosis active 01/26/2014 Encounter for removal of sutures Z48.02(ICD- 10) Diagnosis active 10/17/2013 Neoplasm of uncertain behavior of skin D48.5(ICD-1 0) Diagnosis active 10/05/2013 Encounter for removal of sutures Z48.02(ICD- 10) Diagnosis active 08/29/2013 Neoplasm of uncertain behavior of skin D48.5(ICD-1 0) Diagnosis active 08/15/2013 Personal history of diseases of skin and subcutaneous tissue V13.3(ICD-9 ) Diagnosis active 08/01/2013 Neoplasm of unspecified nature of bone, soft tissue, and skin 239.2(ICD-9 ) Diagnosis active 08/01/2013 Family history of other specified malignant neoplasm V16.8(ICD-9 ) Diagnosis active 08/01/2013 Other dyschromia 709.09(ICD- 9) Diagnosis active 08/01/2013 Rosacea 695.3(ICD-9 ) Diagnosis active 08/01/2013 Other seborrheic keratosis 702.19(ICD- 9) Diagnosis active 08/01/2013 Other chronic dermatitis due to solar radiation 692.74(ICD- 9) Diagnosis active 08/01/2013 Dysplastic nevus of skin (disorder) 260772368(S NOMED) Problem active Squamous cell carcinoma (disorder) 935657553(S NOMED) Problem active Eczema (disorder) 59109317(SN OMED) Problem active Eczema (disorder) 25366703(SN OMED) Problem active Dysplastic nevus of skin (disorder) 846426376(S NOMED) Problem active Dysplastic nevus of skin (disorder) 063167326(S NOMED) Problem active Dysplastic nevus of skin (disorder) 300880235(S NOMED) Problem active Squamous cell carcinoma (disorder) 297179602(S NOMED) Problem active Dysplastic nevus of skin (disorder) 269408188(S NOMED) Problem active Eczema (disorder) 76807686(SN OMED) Problem active Actinic keratosis (disorder) (S NOMED) Problem active Sunburn of second degree (disorder) 432029197(S NOMED) Problem active History of skin disorder (situation) 275941048(S NOMED) Problem active Results No data Encounters Service provided at [address], [address], [place], [place] [id number]. Office phone number is [phone]. Office fax number is [phone]. Encounter Diagnosis Location Date / Time Type Actinic Keratosis (L57.0)Act inic Damage (L57.8)Irritated Seborrheic Keratoses (L82.0)Rosacea (L71.9)Subungual hematoma toenail (S90.112A,S90.111A)Seborrheic Keratosis (L82.1)Woodward Angiomas (D18.01)Benign Appearing Nevi (D22.5)Lentigines (L81.4)MIPS ()History of Actinic Keratoses (Z87.2)Family history of malignant melanoma (Z80.8)History of Severely Dysplastic Nevus (Z87.2) [facility] 12/31/2024 16:30:00 [place] [address] Reason For Referral No data Procedures Procedure Date Destruction of premalignant skin lesion (procedure) 12/31/2024 12:00 am UTC Cryotherapy of skin lesion with liquid n itrogen (procedure) 12/31/2024 12:00 am UTC Destruction of premalignant skin lesion (procedure) 06/30/2024 12:00 am UTC Shave biopsy (procedure) 06/30/2024 12:0 0 am UTC Destruction of premalignant skin lesion (procedure) 12/31/2023 12:00 am UTC Destruction of premalignant skin lesion (procedure) 06/26/2023 12:00 am UTC Shave biopsy (procedure) 11/21/2022 12:0 0 am UTC Cryotherapy of skin lesion with liquid n itrogen (procedure) 11/21/2022 12:00 am UTC Cryotherapy of skin lesion with liquid n itrogen (procedure) 05/29/2022 12:00 am UTC Cryotherapy of skin lesion with liquid n itrogen (procedure) 11/28/2021 12:00 am UTC Cryotherapy of skin lesion with liquid n itrogen (procedure) 06/28/2021 12:00 am UTC Cryotherapy of skin lesion with liquid n itrogen (procedure) 01/03/2021 12:00 am UTC History of appendectomy (situation) 07/12 12:00 am UTC Biopsy of skin (procedure) 08/07/2017 12 :00 am UTC History of appendectomy (situation) 08/2016 12:00 am UTC Biopsy of skin (procedure) 01/16/2017 12 :00 am UTC Biopsy of skin (procedure) 06/24/2016 12 :00 am UTC History of appendectomy (situation) 06/10 12:00 am UTC History of appendectomy (situation) 06/10 12:00 am UTC Biopsy of skin (procedure) 06/21/2015 12 :00 am UTC Biopsy of skin (procedure) 08/03/2014 12 :00 am UTC History of appendectomy (situation) 07/12 12:00 am UTC Biopsy of skin (procedure) 01/26/2014 12 :00 am UTC History of appendectomy (situation) 01/10 12:00 am UTC Surgical biopsy of skin (procedure) History of appendectomy (situation) History of appendectomy (situation) Surgical biopsy of skin (procedure) Biopsy of skin (procedure) History of appendectomy (situation) History of appendectomy (situation) Biopsy of skin (procedure) History of appendectomy (situation) Surgical biopsy of skin (procedure) History of appendectomy (situation) Surgical biopsy of skin (procedure) History of appendectomy (situation) Surgical biopsy of skin (procedure) History of appendectomy (situation) Surgical biopsy of skin (procedure) History of appendectomy (situation) Surgical biopsy of skin (procedure) History of appendectomy (situation) Surgical biopsy of skin (procedure) Surgical biopsy of skin (procedure) History of appendectomy (situation) History of appendectomy (situation) Surgical biopsy of skin (procedure) History of appendectomy (situation) Surgical biopsy of skin (procedure) History of appendectomy (situation) Surgical biopsy of skin (procedure) Surgical biopsy of skin (procedure) History of appendectomy (situation) Surgical biopsy of skin (procedure) History of appendectomy (situation) Review Of Systems Provider reviewed on Dec 31, 2024.A focused review of systems was performed including Hematologic /Lymphatic and Integumentary.No Problems With Healing Or Scar Formation (hypertrophic/keloid) And NoProblems With Bleeding Or Current Blood Thinner Use. Assessment 1.Actinic Keratosis, Status: Inadequately ControlledCounselingLiquid Nitrogen: right cheek; right jain; nose; Number of freeze-thaw Cycles - 2 freeze-thaw cycles.2.Actinic DamageCounselingSunscreenRecommendations3.Irritated Seborrheic Keratoses, Status: WorseningCounselingLiquid Nitrogen: left superior upper back; left medial upper back; inferior thoracic spine; left superior medial midback; superior lumbar spine; Number of freeze-thaw Cycles - 2 freeze-thaw cycles; Medical Necessity Justification (varies by insurance carrier and by region) - irritated, inflamed, and intensely itchy.4.Rosacea, Status: StableCounselingPrescription Medication Management: nose; Continue Regimen - azelaic acid 15 % topical gelclindamycin 1 % lotiondoxycycline hyclate 100 mg ;.Prescription: azelaic acid 15 % topical gel Frequency: Bid; clindamycin 1 % lotion Frequency: Bid; doxycycline hyclate 100 mg capsule PO Frequency: BID5.Subungual hematoma toenailCounselingPhoto-Documentation: toenail; toe.Observation: right dorsal great toe.Other: Other (Free Text) - s/p manicure .6.Seborrheic KeratosisCounseling7.Woodward AngiomasCounseling8.Benign Appearing NeviCounseling9.DnoztzxbuhBatmzuavrt85.MIPSMIPS Gcquyxd25.History of Actinic CiutixjtpOzytccntef27.Family history of malignant melanomaCounselingOther: Other (Free Text) - Father/ Mother.13.History of Severely Dysplastic NevusCounseling Plan of Care Future visit for 06/17/2025 - Follow up in 6 months for: Skin Check Code Detail Instructions [id number] Never smoked tobacco [id number] Cage questionnaire [id number] Never smoked tobacco [id number] Cage questionnaire [id number] Cage questionnaire [id number] Never smoked tobacco [id number] azelaic acid 15 % topical gel Ap ply to face rosacea BID 19740218 clindamycin 1 % lotion Apply to areas of break out BID PRN [id number] doxycycline hyclate 100 mg capsu le take 1 cap onceBID X 2 weeks with food and water. 1032620 doxycycline hyclate 100 mg capsu le take 1 cap onceBID X 2 weeks with food and water. 19740218 clindamycin 1 % lotion Apply to areas of break out BID PRN 2146135 azelaic acid 15 % topical gel Ap ply to face rosacea BID 19740218 clindamycin 1 % lotion Apply to affected areas above the ears and on the chest BID until area is resolved. 948784 metronidazole 0.75 % topical cre am Apply thin layer to whole face BID. 992668 fluorouracil 5 % topical cream A pply bid x 2 weeks to precancerous lesions on the face BID X 2 weeks then stop. Not to exceed 1 g daily. 476068 fluorouracil 5 % topical cream A pply to precancerous lesions between visits BiD x 2 weeks as tolerated. 765941 fluorouracil 5 % topical cream A pply to affected areas on face and scalp bid x two weeks. 876361 adapalene 0.1 % topical cream Ap ply to face QHS 8779737 Finacea 15 % topical gel Apply t o rosacea amount once daily. 19780913 minocycline 100 mg capsule One P O BID. Take with full glass of water. No dairy [id number] Finacea 15 % topical gel Apply t o rosacea once daily. 3372478 Klaron 10 % lotion (suspension) Apply to face BID doxycycline hyclate 100 mg capsu le Take one PO twice daily 0745301 Finacea 15 % topical gel Apply t o rosacea once daily. 5851089 Finacea 15 % topical gel Apply t o rosacea BID 21150717 MetroCream 0.75 % topical Apply to face bid 3839377 Finacea 15 % topical gel Apply t o rosacea once daily. 21150717 MetroCream 0.75 % topical Apply bid to face 5567566 Finacea 15 % topical gel Apply t o face QHS 808255 MetroCream 0.75 % topical Apply bid to face 21150717 MetroCream 0.75 % topical Apply bid to face 4078719 Finacea 15 % topical gel Apply t o face QHS 9625250 Finacea 15 % topical gel Apply t o face QHS -1 Acne Cleansing Pads 2 % Apply bi d---bought in office 4857467 Finacea 15 % topical gel Apply t o face qhs 2037902 Latisse 0.03 % eyelash drops Shaq ly as directed. Pt purchased in office. 418672 MetroCream 0.75 % topical Apply to affected area Qhs [id number] Latisse 0.03 % eyelash drops Shaq ly as directed. Pt purchased in office. 396345 Bactroban 2 % topical ointment A pply BID x2wks 1418395 Finacea 15 % topical gel Apply t o face QHS Instructions * I counseled the patient regarding the following:Skin Care: Sun protective clothing and broad spectrum sunscreen can prevent the formation of Actinic Keratoses. AKs can resolve with cryotherapy, photodynamic therapy, imiquimod, topical 5-FU.Expectations: Actinic Keratoses are precancerous proliferations that occur within sun damaged skin. If untreated, a small subset of AKs can develop into Squamous Cell Carcinoma.Contact Office if: If AKs fail to resolve despite treatment, or if you develop a side effect from therapy, such as unbearable crusting, scabbing, redness and tenderness.I recommendedthe following: Nicotinamide (Vitamin B3) SupplementationBroad Spectrum Sunscreen SPF 30+ * I counseled the patient regarding the following:Skin Care: Actinic Damage can improve with broad spectrum sunscreen, sun avoidance, bleaching creams, retinoids, chemical peels and laser.Expectations:Actinic Damage is photo-aging from excessive sun exposure. It manifests as unwanted pigmentation, wrinkles and textural thinning of the skin.I recommended the following: Sunscreen * I counseled the patient regarding the following:Skin Care: Irritated Seborrheic Keratoses can be removed with cryotherapy.Expectations: Irritated Seborrheic Keratoses are benign growths that become inflamed, itchy, tender, traumatized, caught on clothing, or exhibit bleeding or crusting. Because the are symptomatic, they can be treated with cryotherapy.Contact Office if: If Irritated Seborrheic Keratoses fail to resolve despite treatment, or if you develop a side effect from therapy, such as unbearable crusting, scabbing, redness and tenderness. * I counseled the patient regarding the following:Skin care: Patient instructed to wear broad spectrum sunscreen. Moisturizers with green tints can hide redness.Expectations: Rosacea is chronic. Flushing and pimples can be triggered by: alcohol, stress, exercise, hot temperatures or spicy foods, wind and sun exposure. Telangiectasias can be improved with laser.Contact office if: Rosacea worsens or fails to improve despite months of treatment; patient develops nodules or cysts.I recommended the following: Moisturizers * I counseled the patient regarding the following:Skin care: Subungual Hematomas that are acute and painful can be evacuated with pulse electrocautery, piercing through the nail plate. Chronic or stable subungual hematomas will eventually grow out of the nail bed over months.Expectations: Subungual He matomas are collections of blood and clot between the nail bed and the nail plate. They are painful, and a result of trauma.Contact office if: Hematoma fails to grow distally over time, or if patientdevelops proximal nail fold pigmentation. * I counseled the patient regarding the following:Skin Care: Seborrheic Keratoses are benign. No treatment is necessary.Expectations: Seborrheic Keratoses are benign warty growths. Patients get more ofthem as they age. * I counseled the patient regarding the following:Skin Care: Woodward Angiomas can resolve with lasers or electrodesiccation.Expectations: Woodward Angiomas are benign vascular growths. No treatment is necessary. * I counseled the patient regarding the following:Instructions: Monthly self- skin checks to monitor for any changes in moles are recommended.Expectations: Benign Nevi are pigmented nests of cells within the skin. No treatment is necessary.Contact Office if: Any moles change in size, shape or color; itch, burn or bleed. * I counseled the patient regarding the following:Skin Care: Lentigines can resolve with broad spectrum sunscreen, sun avoidance, bleaching creams, retinoids, chemical peels and laser.Expectations: Lentigines are benign pigmented lesions that occur on sun-exposed and sun-damaged skin. They are easilytreatable.I recommended the following: Sunscreen * I counseled the patient regarding the following:Skin Care: Sun protective clothing and broad spectrum sunscreen can prevent the formation of Actinic Keratoses. AKs can resolve with cryotherapy, photodynamic therapy, imiquimod, topical 5-FU.Expectations: Actinic Keratoses are precancerous proliferations that occur within sun damaged skin. If untreated, a small subset of AKs can develop into Squamous Cell Carcinoma.Contact Office if: If AKs fail to resolve despite treatment, or if you develop a side effect from therapy, such as unbearable crusting, scabbing, redness and tenderness. * I counseled the patient regarding the following:Skin Care: Patients with a family history of melanoma should wear broad spectrum sunscreen and sun protective clothing.Expectations: Patients with a family history of melanoma from a 1st degree relative have a higher risk of developing a melanoma richard red with the rest of the population. Monthly self-skin checks should be performed to monitor for any moles that change in size, shape or color, itch burn or bleed.Contact Office if: Patient notices any new or changing moles. * I counseled the patient regarding the following:Education: The importance of regular self skin checks to monitor for any changes in mole size, shape or color was reviewed with the patient.Expectations: Atypical Nevi need to be monitored on a regular basis by patients and dermatologists for changes since they have the potential to turn into melanoma.Contact office if: Any moles change in size, shape or color, or itch, burn or bleed. Social History Code Activity Start Date End Date [id number] (SNOMED) Never smoker Sex female Sexual orientation Unspecified Gender identity Unspecified Vital Signs No data
[2025-01-28 15:07] VITALS: BP 127/69; PULSE 72; RESP 16; TEMP 36.3; O2SAT 100; BMI 25.7
--- NOTE | 2025-01-28 15:11 | DI.RAD.S_ITS ---
PROCEDURE: XR ANKLE RT MIN 3V INDICATIONS: fall, pain from knee to foot TECHNIQUE: 3 views of the ankle were acquired. COMPARISON: None. FINDINGS/IMPRESSION: Moore type B fracture of the distal fibula at the level of the syndesmosis. No unstable fracture features. Ankle mortise is maintained. No medial malleolus or posterior malleolus fracture. Dictated by: Celio Cisneros M.D. on 01/28/2025 at 15:44 Approved by: Celio Cisneros M.D. on 01/28/2025 at 15:45
--- NOTE | 2025-01-28 15:11 | DI.RAD.S_ITS ---
PROCEDURE: XR KNEE RT 3V INDICATIONS: fall, pain from knee to foot TECHNIQUE: 3 views of the knee were acquired. COMPARISON: None. FINDINGS: Bones: No fractures or dislocations. No suspicious bony lesions. Soft tissues: No joint effusion. No suspicious soft tissue calcifications. IMPRESSION: No acute bony abnormality or significant effusion. Dictated by: Celio Cisneros M.D. on 01/28/2025 at 15:46 Approved by: Celio Cisneros M.D. on 01/28/2025 at 15:46
--- NOTE | 2025-01-28 15:11 | DI.RAD.S_ITS ---
PROCEDURE: XR FOOT RT MIN 3V INDICATIONS: fall, pain from knee to foot TECHNIQUE: 3 views of the foot were acquired. COMPARISON: None. FINDINGS: Bones: Distal fibula fracture, discussed on recent ankle series. There is bulky periosteal reaction of the 2nd and 4th metatarsals, indicating chronic fracture deformities. Soft tissues: No tibiotalar joint effusion. Achilles tendon appears normal. IMPRESSION: No acute bony abnormality. Dictated by: Celio Cisneros M.D. on 01/28/2025 at 15:45 Approved by: Celio Cisneros M.D. on 01/28/2025 at 15:46
--- NOTE | 2025-01-28 15:14 | ED_ITS ---
HPI - Extremity Injury (Lower) <Jeniffer Denton PA-C - Last Filed: 01/28/25 17:08> General Chief Complaint: Extremity Injury, Lower Stated Complaint: R ankle/foot pn x1 week, bruised, not improving Time Seen by Provider: 01/28/25 15:07 History of Present Illness HPI Narrative: Ms. Yanes is a very pleasant 64-year-old female with a past medical history of chronic low back pain, hypothyroidism, HTN who presents to the emergency department for right foot and ankle pain x1 week. About 1 week ago patient took a step up with her right foot but rolled the ankle due to the step being wet slippery. Over the last week she has been using a leave and gabapentin for the pain. However she continues to have progressive bruising of her entire right foot and the moreira so her son convinced her to come to the emergency department. She has been attempting to walk on it this last week. She denies any calf swelling or tenderness bilaterally. No open wounds. No prior injury to this right ankle. No hardware. No blood thinner use. No fall head strike or other injuries. No CP or SOB. Related Data Previous Rx's ?Medication ?Instructions ?Recorded hydrochlorothiazide 12.5 mg capsule 12.5 mg PO QDAY #9 0 caps 10/10/12 ibuprofen 800 mg tablet 800 mg PO Q8H PRN pain #90 t abs 10/10/12 meclizine 25 mg tablet 25 mg PO TID PRN dizziness # 270 10/14/23 tabs famotidine 20 mg tablet (Pepcid) 20 mg PO BID PRN hear tburn #180 02/25/24 tabs levothyroxine 50 mcg tablet 50 mcg PO DAILY #90 tabs 0 05/30/24 gabapentin 300 mg capsule See Rx Instructions .Route 1 02/28/24 .COMPLEX #120 caps methocarbamol 500 mg tablet 500 mg PO Q6H PRN muscle s pasm #30 12/28/24 tabs ibuprofen 800 mg tablet 800 mg PO Q8H PRN pain #30 t abs 01/28/25 Allergies Allergy/AdvReac Type Severity Reaction Status Date / Time No Known Drug Allergies Allergy Verified 12/28/24 15:11 Review of Systems <Jeniffer Denton PA-C - Last Filed: 01/28/25 17:08> Review of Systems ROS Unobtainable: All systems reviewed & are unremarkable except as noted in HPI and below Patient History <Jeniffer Denton PA-C - Last Filed: 01/28/25 17:08> Medical History Dorsalgia Lumbar radiculopathy Lumbar spondylosis Degenerative arthritis of lumbar spine Degenerative arthritis of cervical spine Other low back pain Chronic GERD Subclinical hypothyroidism Rosacea Eczema Headache Carpal tunnel syndrome Vertigo Melanoma HTN (hypertension) Anemia Pyelonephritis (~09/2012) Sepsis (~09/2012) Skin cancer Surgical History H/O sinus surgery Hx of appendectomy Family History Father Skin cancer Hypertension Mother Skin cancer Hypertension Stroke Social History household members: spouse alcohol intake frequency: a few times a week Exam <Jeniffer Denton PA-C - Last Filed: 01/28/25 17:08> Narrative Exam Narrative: GENERAL: 64 year old patient appears stated age. Well-developed patient, in no acute distress. HEAD: Atraumatic. Normocephalic. EYES: No scleral icterus. No injection or drainage. NECK: Trachea midline. Cervical ROM intact. CARDIOVASCULAR: Regular rate RESPIRATORY: ?Nonlabored respirations. ?Speaking in clear, full sentences. GASTROINTESTINAL: Abdomen soft, non-tender, nondistended. EXTREMITIES: Patient has healing ecchymosis extending from the dorsal aspect of the right foot along the lateral and medial malleolus and up to the distal moreira. She has tenderness of the entire ankle but most prominent over the lateral malleolus. Achilles tendon is palpable. Brisk cap refill in the toes and palpable DP PT pulse. Sensation intact to light touch on plantar and dorsal aspect of the foot. No calf swelling or tenderness. NEURO: AOx3. ?Clear speech. ? SKIN: Right lower extremity bruising described above. Initial Vital Signs Initial Vital Signs: Vital Signs Temperature 97.3 F L 01/28/25 15:07 Pulse Rate 72 01/28/25 15:07 Respiratory Rate 16 01/28/25 15:07 Blood Pressure 127/69 01/28/25 15:07 Pulse Oximetry 100 01/28/25 15:07 Oxygen Delivery Method Room Air 01/28/25 15:07 <Mariam Duff MD - Last Filed: 01/28/25 17:30> Initial Vital Signs Initial Vital Signs: Vital Signs Temperature 97.3 F L 01/28/25 15:07 Pulse Rate 72 01/28/25 15:07 Respiratory Rate 16 01/28/25 15:07 Blood Pressure 127/69 01/28/25 15:07 Pulse Oximetry 100 01/28/25 15:07 Oxygen Delivery Method Room Air 01/28/25 15:07 Course <Jeniffer Denton PA-C - Last Filed: 01/28/25 17:08> Orders Ordered: ED Orders 01/28/25 15:11 XR ankle RT min 3V Stat XR foot RT min 3V Stat XR knee RT 3V Stat 01/28/25 16:24 Consult to [facility] Stat Discontinued Medications Acetaminophen (Acetaminophen 325 Mg Tablet) 975 mg PO NOW ONE Stop: 01/28/25 15:13 Last Admin: 01/28/25 15:16 Dose: 975 mg Documented By: CTS Ibuprofen (Ibuprofen 400 Mg Tablet) 800 mg PO NOW ONE Stop: 01/28/25 15:13 Last Admin: 01/28/25 15:16 Dose: 800 mg Documented By: CTS Vital Signs Vital signs: Vital Signs - 8 hr 01/28/25 15:07 Temperature 97.3 F L Pulse Rate 72 Respiratory Rate 16 Blood Pressure 127/69 Pulse Oximetry 100 Oxygen Delivery Method Room Air <Mariam Duff MD - Last Filed: 01/28/25 17:30> Orders Ordered: ED Orders 01/28/25 15:11 XR ankle RT min 3V Stat XR foot RT min 3V Stat XR knee RT 3V Stat 01/28/25 16:24 Consult to [facility] Stat Discontinued Medications Acetaminophen (Acetaminophen 325 Mg Tablet) 975 mg PO NOW ONE Stop: 01/28/25 15:13 Last Admin: 01/28/25 15:16 Dose: 975 mg Documented By: CTS Ibuprofen (Ibuprofen 400 Mg Tablet) 800 mg PO NOW ONE Stop: 01/28/25 15:13 Last Admin: 01/28/25 15:16 Dose: 800 mg Documented By: CTS Vital Signs Vital signs: Vital Signs - 8 hr 01/28/25 15:07 Temperature 97.3 F L Pulse Rate 72 Respiratory Rate 16 Blood Pressure 127/69 Pulse Oximetry 100 Oxygen Delivery Method Room Air MDM - Extremity Injury (Lower) <Jeniffer Denton PA-C - Last Filed: 01/28/25 17:08> Medical Records Attestation: I reviewed the patient's medical records. Imaging Data XR R Knee: Radiologist's Impression: PROCEDURE: XR KNEE RT 3V INDICATIONS: fall, pain from knee to foot TECHNIQUE: 3 views of the knee were acquired. COMPARISON: None. FINDINGS: Bones: No fractures or dislocations. No suspicious bony lesions. Soft tissues: No joint effusion. No suspicious soft tissue calcifications. IMPRESSION: No acute bony abnormality or significant effusion. Dictated by: Celio Cisneros M.D. on 01/28/2025 at 15:46 Approved by: Celio Cisneros M.D. on 01/28/2025 at 15:46 XR R Ankle: Radiologist's Impression: PROCEDURE: XR ANKLE RT MIN 3V INDICATIONS: fall, pain from knee to foot TECHNIQUE: 3 views of the ankle were acquired. COMPARISON: None. FINDINGS/IMPRESSION: Moore type B fracture of the distal fibula at the level of the syndesmosis. No unstable fracture features. Ankle mortise is maintained. No medial malleolus or posterior malleolus fr acture. Dictated by: Celio Cisneros M.D. on 01/28/2025 at 15:44 Approved by: Celio Cisneros M.D. on 01/28/2025 at 15:45 XR R Foot: Radiologist's Impression: PROCEDURE: XR FOOT RT MIN 3V INDICATIONS: fall, pain from knee to foot TECHNIQUE: 3 views of the foot were acquired. COMPARISON: None. FINDINGS: Bones: Distal fibula fracture, discussed on recent ankle series. There is bulky periosteal reaction of the 2nd and 4th metatarsals, indicating chronic fracture deformities. Soft tissues: No tibiotalar joint effusion. Achilles tendon appears normal. IMPRESSION: No acute bony abnormality. Dictated by: Celio Cisneros M.D. on 01/28/2025 at 15:45 Approved by: Celio Cisneros M.D. on 01/28/2025 at 15:46 MDM Narrative Medical decision making narrative: 64-year-old female with a past medical history of chronic low back pain, hypothyroidism, HTN who presents to the emergency department for right foot and ankle pain x1 week. Differential diagnosis includes but is not limited to right ankle fracture, sprain, strain, dislocation, etc. On exam patient is in no acute distress, nontoxic appearing. She does have significant bruising of her right foot and ankle after rolling her ankle 1 week ago. Majority of her tenderness is on the lateral aspect. She is neurovascularly intact. She is not having any calf swelling or tenderness. We will obtain x-ray of the foot and ankle but also the knee because she does have some lateral knee tenderness concern for a possible proximal fibular fracture in the event that she has a distal fibular fracture. She declines opiate pain medication we will treat with ibuprofen and Tylenol. X-rays reveal no acute bony abnormality in the right foot, no acute abnormality in the knee, acute Moore B fracture of the distal fibula at the level of the syndesmosis no unstable fracture features. I did print and discussed all imaging results with the patient and reviewed chronic findings. Ortho consult: I called and spoke with Dr. Brown, orthopedic surgeon on-call, in regards to patient's right Moore type B fracture of the distal fibula. It was decided that the patient should be placed into an orthopedic boot and provided with crutches and advised to remain nonweightbearing until she can get into the orthopedic clinic for stress few x-rays to determine the need for continued nonweightbearing or not. Patient was placed into a right orthopedic boot and provided with crutches and advised to remain nonweightbearing. She declines need for opiate pain medications, I did prescribe her ibuprofen 800 as this is a normal medication for her that she has run out of. Discussed Tylenol use, rice therapy, ER return precautions and orthopedic follow up. She verbalized understanding of all information agreeable with the plan. She is stable for discharge home with her son. Discharge Plan Departure Patient Disposition: Home Clinical Impression: Fracture of distal end of fibula Qualifiers: Encounter type: initial encounter Fracture type: closed Fracture morphology: unspecified fracture morphology Laterality: right Qualified Code(s): S82.831A - Other fracture of upper and lower end of right fibula, initial encounter for closed fracture Right ankle strain Qualifiers: Encounter type: initial encounter Qualified Code(s): S96.911A - Strain of unspecified muscle and tendon at ankle and foot level, right foot, initial encounter Instructions: DI for Ankle Fracture Activity Restrictions/Additional Instructions: Dear Ottoniel Joaquín, Thank you for coming to the emergency department. Today you were evaluated and found to have a right ankle fracture. I spoke with our orthopedic surgeon, Dr. Brown, who would like you to remain nonweightbearing until you can follow up with their office for additional evaluation. This means that you need to use crutches or a scooter to keep weight off of the right foot/ankle. Please call and schedule an appointment with Dr. Brown or one of the other providers at [facility]. Please use RICE therapy for your pain in addition to ibuprofen/acetaminophen. Rest the painful area. Ice the area of pain/swelling for at least 15 minutes, 4x a day. Compress the area of swelling using a brace, wrap, or splint if applied. Elevate the painful or swollen extremity by supporting it above the level of the heart with pillows when sitting or laying. Please follow up with your primary care doctor within the next 2-3 days for ER follow-up. (If you do not have a PCP you can call [phone]. ?to schedule an appointment with an [facility] Primary Care Provider) IF YOU DEVELOP ANY NEW OR WORSENING SYMPTOMS, RETURN TO THE ER! Please read the attached instructions, they highlight more specific treatments and interventions for you at home. Thank you for letting me participate in your care, Jeniffer Denton PA-C Prescriptions: New ibuprofen 800 mg tablet 800 mg PO Q8H PRN (Reason: pain) Qty: 30 0RF No Action meclizine 25 mg tablet 25 mg PO TID PRN (Reason: dizziness) Qty: 270 0RF ibuprofen 800 mg tablet 800 mg PO Q8H PRN (Reason: pain) Qty: 90 0RF hydrochlorothiazide 12.5 mg capsule 12.5 mg PO QDAY Qty: 90 3RF levothyroxine 50 mcg tablet 50 mcg PO DAILY Qty: 90 3RF famotidine [Pepcid] 20 mg tablet 20 mg PO BID PRN (Reason: heartburn) Qty: 180 3RF gabapentin 300 mg capsule See Rx Instructions .ROUTE .COMPLEX Qty: 120 5RF Rx Instructions: Take 1 capsule every morning and 3 capsules at bedtime methocarbamol 500 mg tablet 500 mg PO Q6H PRN (Reason: muscle spasm) Qty: 30 2RF Referrals: Guanakito Díaz ARNP [Primary Care Provider, Medical] Jorge Alberto Brown MD [Physician, Orthopedics] Referral Note: Right ankle fracture Stand Alone Forms: Patient Portal/API ED Sign-out <Mariam Duff MD - Last Filed: 01/28/25 17:30> Cosign ED Attending Cosignature Attestation: I reviewed the patient?s history, physical examination findings, diagnostic results, and the documented plan of care. I was not directly involved in the patient?s management but was available for consultation. I agree with the assessment and plan as outlined by the advanced practice provider. Mariam Duff MD Emergency Department Attending 17:08 01/28/2025
[2025-01-28] MEDS: ACETAMINOPHEN 325 MG TABLET 975 MG PO (15:16)
[2025-01-28] MEDS: IBUPROFEN 400 MG TABLET 800 MG PO (15:16)
== END 2025-01-28 16:30 | disposition home or self-care (01) ==
PROVIDERS: Emergency Provider Physician Assistant; Family Provider Registered Nurse Diabetes Educator; PCP Registered Nurse Diabetes Educator
DX: S82.831A Other fracture of upper and lower end of right fibula, initial encounter for closed fracture (principal); S96.911A Strain of unspecified muscle and tendon at ankle and foot level, right foot, initial encounter; X50.1XXA Overexertion from prolonged static or awkward postures, initial encounter
CPT/HCPCS: 73562; 73610; 73630; 99283